=== PATIENT | female | born 1995 | race African-American/Black ===

== ENCOUNTER → 2022-11-02 11:52 | Outpatient (BNVA) | payer OTHER, SELFPAY | PROVIDERS: Visit Provider Internal Medicine | DX: Z77.21 Contact with and (suspected) exposure to potentially hazardous body fluids (principal) | CPT/HCPCS: 99203 ==

== ENCOUNTER → 2023-03-27 09:27 | Outpatient (BNVA) | payer OTHER, SELFPAY | PROVIDERS: Visit Provider Physician Assistant | DX: S63.601A Unspecified sprain of right thumb, initial encounter (principal); S39.012A Strain of muscle, fascia and tendon of lower back, initial encounter; S76.312A Strain of muscle, fascia and tendon of the posterior muscle group at thigh level, left thigh, initial encounter; S83.91XA Sprain of unspecified site of right knee, initial encounter; W01.0XXA Fall on same level from slipping, tripping and stumbling without subsequent striking against object, initial encounter | CPT/HCPCS: 99203 ==

== ENCOUNTER → 2023-04-03 15:49 | Outpatient (BNVA) | payer OTHER, SELFPAY | PROVIDERS: Visit Provider Physician Assistant | DX: S39.012A Strain of muscle, fascia and tendon of lower back, initial encounter (principal); S76.312A Strain of muscle, fascia and tendon of the posterior muscle group at thigh level, left thigh, initial encounter; W01.0XXA Fall on same level from slipping, tripping and stumbling without subsequent striking against object, initial encounter | CPT/HCPCS: 99214 ==

== ENCOUNTER → 2023-04-30 15:22 | Outpatient (BNVA) | payer OTHER, SELFPAY | PROVIDERS: Visit Provider Physician Assistant | DX: S76.312D Strain of muscle, fascia and tendon of the posterior muscle group at thigh level, left thigh, subsequent encounter (principal); S39.012D Strain of muscle, fascia and tendon of lower back, subsequent encounter; W01.0XXD Fall on same level from slipping, tripping and stumbling without subsequent striking against object, subsequent encounter | CPT/HCPCS: 99213 ==

== ENCOUNTER → 2024-01-10 12:18 | Outpatient (BNVA) | payer OTHER, SELFPAY | PROVIDERS: Visit Provider Registered Nurse | DX: S66.911A Strain of unspecified muscle, fascia and tendon at wrist and hand level, right hand, initial encounter (principal); W50.0XXA Accidental hit or strike by another person, initial encounter | CPT/HCPCS: 73110; 73130; 99203 ==

== ENCOUNTER → 2024-01-15 15:56 | Outpatient (BNVA) | payer OTHER, SELFPAY | PROVIDERS: Visit Provider Physician Assistant Medical | DX: S66.911A Strain of unspecified muscle, fascia and tendon at wrist and hand level, right hand, initial encounter (principal); W50.0XXA Accidental hit or strike by another person, initial encounter | CPT/HCPCS: 99213 ==

== ENCOUNTER → 2024-01-22 14:45 | Outpatient (BNVA) | payer OTHER, SELFPAY | PROVIDERS: Visit Provider Physician Assistant Medical | DX: S66.911D Strain of unspecified muscle, fascia and tendon at wrist and hand level, right hand, subsequent encounter (principal); W50.0XXD Accidental hit or strike by another person, subsequent encounter | CPT/HCPCS: 73200; 99213 ==

== ENCOUNTER → 2024-02-26 15:16 | Outpatient (BNVA) | payer OTHER, SELFPAY | PROVIDERS: Visit Provider Physician Assistant Medical | DX: S66.911D Strain of unspecified muscle, fascia and tendon at wrist and hand level, right hand, subsequent encounter (principal); W50.0XXD Accidental hit or strike by another person, subsequent encounter | CPT/HCPCS: 99213 ==

== ENCOUNTER 2024-03-11 08:06 | Outpatient (REF) | payer OTHER, SELFPAY ==
--- NOTE | ~2024-03-11 | MR_ITS ---
CLINICAL HISTORY: HYPEREXTENSION INJURY OF RT THUMB Exam: MRI of the right hand without intravenous contrast. Comparison: Radiographs January 10, 2024. Findings: Overall bony alignment is anatomic. No fracture or concerning bone marrow signal alteration is identified. There is mild edema within the distal fibers of the ulnar collateral ligament at the 1st metacarpophalangeal joints. No disruption of these fibers is identified. No bony avulsion is seen at the ulnar base of the proximal phalanx of the thumb. Radial collateral ligament at the 1st metacarpophalangeal joint is intact. Flexor and extensor tendons to the thumb are intact. Mild peritendinous edema surrounding the flexor pollicis longus tendon. Increased fluid within the 2nd extensor compartment at the level of Rosmery's tubercle. Mild edema surrounding the extensor carpi ulnaris tendon with mild tendinopathy of the extensor carpi ulnaris tendon. No abnormal fluid collections are seen within the carpal tunnel. Signal intensity of the median nerve is within normal limits. Impression: 1. No acute fracture. 2. Grade 1 sprain of the distal fibers of the ulnar collateral ligament at the 1st metacarpophalangeal joint. 3. Mild peritendinous edema surrounding the flexor pollicis longus tendon. No tendon tear seen. 4. Tenosynovitis involving the 2nd extensor compartment with tendinopathy and tenosynovitis of the extensor carpi ulnaris tendon. This document has been electronically signed by: Andrade Steinberg MD on 03/11/2024 10:15:22
== END 2024-03-11 08:07 | disposition home or self-care (01) ==
LOC: HO.MRI 08:06
PROVIDERS: PCP Nurse Practitioner Family; Visit Provider Internal Medicine
DX: M25.531 Pain in right wrist (principal)
CPT/HCPCS: 73218

== ENCOUNTER → 2024-03-11 08:18 | Outpatient (BNV) | payer OTHER, SELFPAY | PROVIDERS: PCP Nurse Practitioner Family; Visit Provider Radiology Diagnostic Radiology | DX: S53.441A Ulnar collateral ligament sprain of right elbow, initial encounter (principal); M65.88 Other synovitis and tenosynovitis, other site | CPT/HCPCS: 73218 ==

== ENCOUNTER 2024-04-01 13:21 | Outpatient (AMB) | payer OTHER, SELFPAY ==
--- NOTE | 2024-04-01 13:24 | A.OFFVIS_ITS ---
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 Patient reports off and on pain since the date of injury. She mentions that her pain is at the base of the thumb and on the dorsal aspect of the wrist. She states that her pain is worse when she is applying pressure to push and when her thumb is hyperextend. Patient has tried Motrin with relief. Denies numbness and tingling. 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 Patient reports off and on pain since the date of injury. She mentions that her pain is at the base of the thumb and on the dorsal aspect of the wrist. She states that her pain is worse when she is applying pressure to push and when her thumb is hyperextend. Patient has tried Motrin with relief. Denies numbness and tingling. 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 Neuro: Normal sensation of the tips of all digits of the right hand at this time Vascular: Cap refill brisk Pain: Patient reports minimal tenderness with ligamentous laxity testing of the UCL of the right thumb No other tenderness to palpation noted ROM: Patient is able to make a closed fist and extend all digits of the right hand fully and without difficulty No laxity with varus and valgus testing of the right thumb MCP joint noted Skin: No lacerations or abrasions. General: No ecchymosis, erythema, or evidence of infection. Psych: Appears grossly normal Affect normal Attitude cooperative for Results Reviewed Results Reviewed: R hand MRI Impression: 1. No acute fracture. 2. Grade 1 sprain of the distal fibers of the ulnar collateral ligament at the 1st metacarpophalangeal joint. 3. Mild peritendinous edema surrounding the flexor pollicis longus tendon. No tendon tear seen. 4. Tenosynovitis involving the 2nd extensor compartment with tendinopathy and tenosynovitis of the extensor carpi ulnaris tendon. This document has been electronically signed by: Andrade Steinberg MD on 03/11/2024 10:15:22 Assessment & Plan Assessment & Plan (1) Sprain of ulnar collateral ligament of metacarpophalangeal (MCP) joint of right thumb: Code(s): S63.641A - Sprain of metacarpophalangeal joint of right thumb, initial encounter Category: Medical Plan 1. UCL sprain of right thumb Date of injury 01/09/2024 Patient is educated about this injury Patient is educated about the typical recovery course At this time, patient was referred to occupational therapy for treatment of UCL sprain as well as range of motion and strengthening of the right hand Patient was also provided with a comfort cool thumb spica splint to wear with daytime activities Patient is educated that if 6-8 weeks after starting occupational therapy she has not improved, she can call us for follow-up Patient was amenable to this plan to this plan Coding Level of Care Code New Pt Level 3 (68396) Diagnoses Sprain of ulnar collateral ligament of metacarpophalangeal (MCP) joint of right thumb S63.641A
[2024-04-01 13:32] VITALS: BMI 41.5
--- OUTSIDE RECORDS SUMMARY | 2024-04-01 14:41 | XMS_ITS | Clinical Summary ---
Author Organization [facility] Address [address] [place] [address] Care Team Providers Care Segment Producer Name Role Phone Pcp, No Primary Care Provider Unavailabl e Allergies No known active allergies Medications No known medications Encounters Date Type Department Care Team Description 03/13/2024 Orders Only [address] [id number] Jesenia Donnelly APRN from Last 3 Months Social History Tobacco Use Types Packs/Day Years Used Date Smoking Tobacco: Never Assessed Sex and Gender Information Value Date Recorded Sex Assigned at Not on file Gender Identity Not on file Sexual Orientation Not on file Last Filed Vital Signs Vital Sign Reading Time Taken Comments Blood Pressure 136/86 09/16/2020 2:18 PM EDT Pulse 119 09/16/2020 2:18 PM EDT Temperature 36.3 ??C (97.3 ??F) 09/16/2020 2:18 PM ED T Respiratory Rate - - Oxygen Saturation 98% 09/16/2020 2:18 PM EDT Inhaled Oxygen Concentration - - Weight 127 kg (279 lb) 09/16/2020 2:18 PM EDT Height - - Body Mass Index - - Plan of Treatment Health Maintenance Due Date Last Done Comments Hepatitis C Virus Screening 1993 HIV Screening 2006 DTaP/Tdap/Td Vaccines (1 - Tdap) 2012 Hepatitis B Vaccines (1 of 3 - 19+ 3-dose series) 2012 Influenza Vaccine 09/19/2023 COVID-19 Vaccine (2023-2 5 season) 2023 Pap Smear (Ages 21-65) 04/24/2025 , 01/09/2021 HPV Vaccines Aged Out No longer eligi ble based on patient's age to complete this topic Pneumococcal Vaccine: Pediatric (0-5 Years) and At-Risk Patients (6 to 49 Years) Aged Out No longer eligible b ased on patient's age to complete this topic Procedures Procedure Name Priority Date/Time Associated Diagnosis Comments TSH, HIGHLY SENSITIVE Routine 03/13/2024 10:27 AM EST T4, FREE Routine 03/13/2024 10:27 AM EST COMPLETE BLOOD COUNT, WITH DIFFERENTIAL Routine 03/13/2024 10:27 AM EST PT/PTT (INCLUDES INR) Routine 03/13/2024 10:27 AM EST THINPREP PAP TEST (MEDICAL CLINIC MANAGER) WITH HPV REFLEX Routine 04/24/2022 12:00 AM EST from Last 3 Months or Most Recently Relevant to Health Maintenance Results * PT/PTT (INCLUDES INR) (03/13/2024 10:27 AM EST) Partial Thromboplastin Time (PTT) 28 23 - 32 sec [facility] Comment: This test has not been validated for monitoring unfractionated heparin therapy. For testing that is validated for this type of therapy, please refer to the Heparin Anti-Xa assay (test code 44459). For additional information, please refer to http://education.Frockadvisor/faq/AIT572 (This link is being provided for informational/educational purposes only.) INR 1.0 [facility] Comment: Reference Range ? 0.9-1.1 Moderate-intensity Warfarin Therapy 2.0-3.0 Higher-intensity Warfarin Therapy ?? 3.0-4.0 Prothrombin Time (PT) 10.3 9.0 - 11.5 sec [facility] 03/13/2024 10:2 7 AM EST 03/13/2024 10:29 AM EST Narrative [facility] - 03/14/2024 4:09 AM EST FASTING:YES FASTING: YES Jesenia Donnelly PATTERN SCRATCHER LAB BLOOD ORDERABL ES [facility] [address] [facility] 3rd Floor, [place] [address] * Complete Blood Count, with Differential (03/13/2024 10:27 AM EST) White Blood Cell Count 9.9 3.8 - 10.8 Thousand/u L [facility] Red Blood Cell Count 4.65 3.80 - 5.10 Million/uL [facility] Hemoglobin 13.9 11.7 - 15.5 g/dL [facility] Hematocrit 41.9 35.0 - 45.0 % [facility] MCV 90.1 80.0 - 100.0 fL [facility] MCH 29.9 27.0 - 33.0 pg [facility] MCHC 33.2 32.0 - 36.0 g/dL [facility] Comment: For adults, a slight decrease in the calculated MCHC value (in the range of 30 to 32 g/dL) is most likely not clinically significant; however, it should be interpreted with caution in correlation with other red cell parameters and the patient's clinical condition. RDW 12.0 11.0 - 15.0 % [facility] Platelet Count 348 140 - 400 Thousand/u L [facility] MPV 9.1 7.5 - 12.5 fL [facility] Abs Neutrophils Auto 6,069 1,500 - 7,800 cells/uL [facility] Abs Lymphocytes Auto 3,029 850 - 3,900 cells/uL [facility] Abs Monocytes Auto 624 200 - 950 cells/uL [facility] Abs Eosinophils Auto 139 15 - 500 cells/uL [facility] Abs Basophils Auto 40 0 - 200 cells/uL [facility] Neutrophils Auto 61.3 % [facility] Lymphocytes Auto 30.6 % [facility] Monocytes Auto 6.3 % [facility] Eosinophils Auto 1.4 % [facility] Basophils Auto 0.4 % [facility] 03/13/2024 10:2 7 AM EST 03/13/2024 10:29 AM EST Narrative [facility] - 03/14/2024 4:09 AM EST FASTING:YES FASTING: YES Jesenia Donnelly PATTERN SCRATCHER LAB BLOOD ORDERABL ES Performing Organization Address [facility] Co de Phone Number [facility] [address], [place] [address] * TSH, HIGHLY SENSITIVE (03/13/2024 10:27 AM EST) TSH, Highly Sensitive 0.80 mIU/L [facility] Comment: ?Reference Range ?> or = 20 Years ??0.40-4.50 ? Ranges ?First trimester ?0.26-2.66 ?Second trimester ?? 0.55-2.73 ?Third trimester ?0.43-2.91 03/13/2024 10:2 7 AM EST 03/13/2024 10:29 AM EST Narrative [facility] - 03/14/2024 4:09 AM EST FASTING:YES FASTING: YES Jesenia Donnelly PATTERN SCRATCHER LAB BLOOD ORDERABL ES [facility] [address], [place] [address] * T4, FREE (03/13/2024 10:27 AM EST) T4, Free 1.3 0.8 - 1.8 ng/dL [facility] 03/13/2024 10:2 7 AM EST 03/13/2024 10:29 AM EST Narrative [facility] - 03/14/2024 4:09 AM EST FASTING:YES FASTING: YES Jesenia Donnelly PATTERN SCRATCHER LAB BLOOD ORDERABL ES Performing Organization Address City/[facility]/ZIP Co de Phone Number [facility] [address], [facility] [place] [address] * ThinPrep Pap Test (Protection Mgr) with HPV Reflex (04/24/2022 12:00 AM EST) Clinical Information [facility] Comment:None given LMP: [facility] Comment:NONE GIVEN Previous PAP: [facility] Comment:NONE GIVEN Previous Biopsy [facility] Comment:NONE GIVEN Source: [facility] Comment:Cervix, Endocervix Statement of Adequacy: [facility] Comment: Satisfactory for evaluation. Endocervical/transformation zone component present. Interpretation/Resu lt: [facility] Comment:Negative for intraep ithelial lesion or malignancy. Comment: [facility] Comment: This Pap test has been evaluated with computer assisted technology. Hha: [facility] Comment: GSG, CT(ASCP) CT screening location: [address] ??[id number] Comment [facility] Comment: EXPLANATORY NOTE: The Pap is a screening test for cervical cancer. It is not a diagnostic test and is subject to false negative and false positive results. It is most reliable when a satisfactory sample, regularly obtained, is submitted with relevant clinical findings and history, and when the Pap result is evaluated along with historic and current clinical information. 04/24/2022 04/26/2022 1:2 1 AM EST Narrative [facility] - 04/26/2022 6:00 PM EST [id number] NG Liss Lopez DO PATHOLOGY/CYTOLOGY O RDERABLES Performing Organization Address [facility]/ZIP Co de Phone Number [facility] [address], [facility] [place] [address] from Last 3 Months or Most Recently Relevant to Health Maintenance Care Teams Segment Producer Relationship Specialty Start Date End Date Pcp, No PCP - General General Medicine 01/01/19
--- OUTSIDE RECORDS SUMMARY | 2024-04-01 14:41 | XMS_ITS | Encounter Summary ---
Author Organization [facility] Address [address] [place] [address] Care Team Providers Care Hcc Coders Name Role Phone Pcp, No Primary Care Provider Unavailabl e Encounter Details Date Type Department Care Team ([facility] st Contact Info) Description 03/13/2024 Orders Only [facility] [address] [facility] [address] [place] [address] Jesenia Donnelly, TRANSPORTER DRIVER [address] [facility] [address] [place] [address] Social History Tobacco Use Types Packs/Day Years Used Date Smoking Tobacco: Never Assessed Sex and Gender Information Value Date Recorded Sex Assigned at Not on file Gender Identity Not on file Sexual Orientation Not on file documented as of this encounter Plan of Treatment Not on file documented as of this encounter Procedures Procedure Name Priority Date/Time Associated Diagnosis Comments PT/PTT (INCLUDES INR) Routine 03/13/2024 10:27 AM EST COMPLETE BLOOD COUNT, WITH DIFFERENTIAL Routine 03/13/2024 10:27 AM EST TSH, HIGHLY SENSITIVE Routine 03/13/2024 10:27 AM EST T4, FREE Routine 03/13/2024 10:27 AM EST documented in this encounter Results * TSH, HIGHLY SENSITIVE (03/13/2024 10:27 AM EST) TSH, Highly Sensitive 0.80 mIU/L [facility] Comment: ?Reference Range ?> or = 20 Years ??0.40-4.50 ? Ranges ?First trimester ?0.26-2.66 ?Second trimester ?? 0.55-2.73 ?Third trimester ?0.43-2.91 03/13/2024 10:2 7 AM EST 03/13/2024 10:29 AM EST Narrative [facility] - 03/14/2024 4:09 AM EST FASTING:YES FASTING: YES Jesenia Nesprido TRANSPORTER DRIVER LAB BLOOD ORDERABL ES Performing Organization Address [facility]/ZIP Co de Phone Number [facility] [address] [address] * T4, FREE (03/13/2024 10:27 AM EST) T4, Free 1.3 0.8 - 1.8 ng/dL [facility] 03/13/2024 10:2 7 AM EST 03/13/2024 10:29 AM EST Narrative [facility] - 03/14/2024 4:09 AM EST FASTING:YES FASTING: YES Jesenia Nesprido TRANSPORTER DRIVER LAB BLOOD ORDERABL ES [facility] [address], [place] [address] * Complete Blood Count, with Differential (03/13/2024 [...] AM EST FASTING:YES FASTING: YES Jesenia Donnelly TRANSPORTER DRIVER LAB BLOOD ORDERABL ES [facility] [address] [facility] 3rd Floor, [place] [address] * PT/PTT (INCLUDES INR) (03/13/2024 10:27 AM EST) Partial Thromboplastin Time (PTT) 28 23 - 32 sec [facility] Comment: This test has not been validated for monitoring unfractionated heparin therapy. For testing that is validated for this type of therapy, please refer to the Heparin Anti-Xa assay (test code 18636). For additional information, please refer to http://education.GoVoluntr/faq/ZTU642 (This link is being provided for informational/educational purposes only.) INR 1.0 [facility] Comment: Reference Range ? 0.9-1.1 Moderate-intensity Warfarin Therapy 2.0-3.0 Higher-intensity Warfarin Therapy ?? 3.0-4.0 Prothrombin Time (PT) 10.3 9.0 - 11.5 sec [facility] 03/13/2024 10:2 7 AM EST 03/13/2024 10:29 AM EST Narrative [facility] - 03/14/2024 4:09 AM EST FASTING:YES FASTING: YES Jesenia Donnelly TRANSPORTER DRIVER LAB BLOOD ORDERABL ES [facility] [address], [address] [place], [place] [id number] documented in this encounter Visit Diagnoses Not on filedocumented in this encounter Care Teams Hcc Coders Relationship Specialty Start Date End Date Pcp, No PCP - General General Medicine 01/01/19 documented as of this encounter
--- OUTSIDE RECORDS SUMMARY | 2024-04-01 14:41 | XMS_ITS | Continuity of Care Document ---
Author Organization [facility], [facility] Address [address] [facility] [address] [place] [address] Care Team Providers Care Emergency Medicine Nurse Practitioner Name Role Phone RIVAS MYRICK Primary Care Provider Assessment No assessment recorded. Plan of Treatment Reminders Order Date Submit Date Provider Last Modified By Organization Details Last Modified Time Details Appointments ANNUAL CENTRAL OFFICE SUPERVISOR 20 2024 04:10P M Dr. Grace Naqvi Not available Not available Not available Lab None recorded . Referral None recorded . Procedures None recorded . Surgeries None recorded . Imaging None recorded . Medication Orders None recorded . Patient TargetsNo targets recorded. Patient InstructionsNo instructions recorded. Reason for Referral None Reported. Results Created Date Observation Date Name Description Value Unit Range Abnormal Flag Note LastModifiedBy Organization Detail LastModifiedTime 03/13/1903/13/2024 US, trans vagin al RAD [email or web address] [facility] [employer] [id number] 03/16/2024 13:43:08 Result Notes None recorded. 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 Ginger Megan null, [facility] 1 16:27:48 Uterine adenomyo sis 933671751 Active 2021 [facility] null, [place] - [facility] 2 10:43:32 Mood disorder 29358819 Active 2019 [facility] null, [facility] 2 10:43:32 Patient encounte r status 885856551 Active 2019 [facility] null, [facility] 2 10:43:32 Abnormal cervical Papanico laou smear 070523164 Active 2021 [facility] null, [facility] 2 10:43:32 Obstruct eden sleep apnea syndrome 70659807 Active 2021 [facility], [facility] 2 10:43:32 Generali zed anxiety disorder 54695737 Active 2019 [facility] null, [facility] 2 10:43:32 Uses IUD (intraut erine device) contrace ption 694756606 Completed 202106/20/2022 Removal Reason: clinical study particip ant Erma Marrufo, GUSTAVO [address] [facility], [address], [place], [address] 3 17:36:12 Severe obesity 74314116384 104 Active 2021 Ginger [facility], [facility] 2 10:43:32 Ventricu lar prematur e beats 87808777 Active 2021 [facility], [facility] 2 10:43:32 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 17:18:11 Postoper ative pain 982073532 Active 2021 Erma Marrufo CNM [address], [place], [address], [facility] 17:19:47 Notes:Heart Problems- extra Heart beats/Adenomyosis Problem Notes None recorded. Procedures Surgical History Date Name Laterality Status Provider Name and Address Organization Details Recorded Time 03/13/19 25 U/S CENTRAL OFFICE SUPERVISOR Transvaginal completed Mary Beth Sanchez [facility] 03/05/2024 07:50:09 08/03/19 23 U/S CENTRAL OFFICE SUPERVISOR Transvaginal completed CURT KAMARA DO [address], [address] [place] [address], [place], [address], [facility] 08/02/2022 09:43:14 06/21/19 23 IUD Removal completed Erma Marrufo CNM [address], [place], [address], [facility] 06/20/2022 17:33:53 06/13/19 23 U/S CENTRAL OFFICE SUPERVISOR Transvaginal completed CURT KAMARA DO [address], [address] [facility], [place], [address], [facility] 06/12/2022 17:25:03 04/25/19 23 Date of Last Pap Smear completed Ginger Guzman [facility] 05/04/2022 10:22:46 01/10/20 22 U/S CENTRAL OFFICE SUPERVISOR Transvaginal completed CURT KAMARA DO [address], [place], [address], [facility] 01/09/2022 17:21:17 11/11/19 22 U/S CENTRAL OFFICE SUPERVISOR Transvaginal completed CURT ANH, DO [address], [place], [address], [place] [facility] 11/10/2021 15:00:16 09/23/19 22 LAPAROSCOPY, SURGICAL WITH FULGURATION/EXCI MARLEN OF LESIONS OF THE OVARY/PELVIC VISCERA/PERITONE AL SURFACE (SURG) completed Ginger Megan [facility] 09/26/2021 12:11:54 07/12/19 22 U/S CENTRAL OFFICE SUPERVISOR Transvaginal completed CURT KAMARA, DO [address] Floor, [place], [address], [facility] - [facility] 07/11/2021 13:31:25 05/10/19 22 U/S CENTRAL OFFICE SUPERVISOR Transvaginal completed CURT KAMARA, DO [address], [address] Floor, [place], [address], [place] [facility] 05/09/2021 13:50:13 03/13/19 22 U/S CENTRAL OFFICE SUPERVISOR Transvaginal completed CURT KAMARA, DO [address], [place], [address], [facility] - [facility] 03/13/2021 12:34:42 02/18/19 22 Endometrial Biopsy completed Rebecca Lucas [facility] 05/17/2023 16:50:39 10/11/19 21 U/S CENTRAL OFFICE SUPERVISOR Transvaginal completed CURT KAMARA DO [address], [place], [address], [place] [facility] 10/10/2020 14:12:18 09/06/19 21 U/S CENTRAL OFFICE SUPERVISOR Transvaginal cancelled Ginger [facility] - [facility] 08/30/2020 12:11:05 05/27/19 21 U/S CENTRAL OFFICE SUPERVISOR Transvaginal completed CURT KAMARA DO [address], [place], [address], [place] [facility] 05/26/2020 18:03:06 06/19/19 16 Breast reduction completed Ginger Guzman [facility] 05/26/2020 16:25:55 02/18/19 16 Breast Surgery completed Rebecca Lucas [facility] 05/17/2023 16:50:39 02/18/19 13 Endometrial Biopsy completed Rebecca Lucas [facility] 05/17/2023 16:50:39 02/18/19 12 laparoscopy completed Aniyah Aminata [facility] 10/10/2020 11:44:30 Imaging Results None recorded. Procedure Notes None recorded. Medical Equipment None Reported. Allergies Allergen ID Allergen Name Allergen Category Reaction Reaction Severity Criticality Documentation Date Start Date Code Code System Note Provider Name and Address Organization Details Recorded Time 7037010 grass pollen environme nt,medica tion itching severe Not available 07/11/2021 [id number] UNK Ginger Guzman [facility], [facility] 12:39:54 Medications Name Sig Start Date Stop Date Status Note LastModified by Organization Details LastModified Time Prescript ion - Prior Authoriza tion Request 05/07 completed Not Available Not Available Not Available fluoxetin e 40 mg capsule TAKE 1 CAPSULE BY MOUTH EVERY DAY 01/09 completed Not Available Not Available Not Available amoxicill in 500 mg capsule TAKE 2 CAPSULES BY MOUTH TWICE A DAY FOR 10 DAYS 03/01 completed Not Available Not Available Not Available buspirone 5 mg tablet Take 1 tablet twice a day by oral route. active Not Available Not Available No t Available metformin 500 mg tablet Take 1 tablet twice a day by oral route. 02/16 completed Not Available Not Available Not Available oxcarbaze pine 150 mg tablet 02/16 completed Not Available Not Available Not Available venlafaxi ne ER 37.5 mg capsule,e xtended release 24 hr TAKE 1 CAPSULE BY MOUTH EVERY DAY 07/11 completed Not Available Not Available Not Available venlafaxi ne ER 75 mg capsule,e xtended release 24 hr 02/16 completed Not Available Not Available Not Available dextroamp hetamine sulfate 5 mg tablet Take 1 tablet twice a day by oral route. 07/11 completed Not Available Not Available Not Available cetirizin e 10 mg tablet Take 1 tablet every day by oral route. 09/28 completed Allergie s Not Available Not Available Not Available ibuprofen 800 mg tablet TAKE 1 TABLET 3 TIMES A DAY BY ORAL ROUTE. active Not Available Not Available No t Available fluconazo le 150 mg tablet TAKE 1 TABLET BY MOUTH ONCE. IF NO IMPROVEM ENT IN 72 HOURS TAKE ANOTHER 150 MG active Not Available Not Available No t Available benzonata te 200 mg capsule TAKE 1 CAPSULE BY MOUTH THREE TIMES A DAY NEEDED 03/01 completed Not Available Not Available Not Available phenazopy ridine 200 mg tablet Take 1 tablet 3 times a day by oral route for 3 days. 01/09 completed Not Available Not Available Not Available metronida zole 0.75 % (37.5 mg/5 gram) vaginal gel INSERT 1 APPLICAT ORFUL VAGINALL Y EVERY DAY AT BEDTIME FOR 5 DAYS active Not Available Not Available No t Available dextroamp hetamine- amphetami ne 10 mg tablet 09/18 completed Not Available Not Available Not Available metronida zole 500 mg tablet TAKE 1 TABLET BY MOUTH TWICE A DAY 03/01 completed Not Available Not Available Not Available oxcarbaze pine 300 mg tablet TAKE 1 TABLET BY MOUTH IN THE MORNING FOR 14 DAYS THEN 1 TABLET TWICE DAILY THEREAFT ER 07/11 completed Not Available Not Available Not Available famotidin e 20 mg tablet TAKE 1 TABLET BY MOUTH TWICE A DAY FOR 10 DAYS 05/16 completed Not Available Not Available Not Available modafinil 200 mg tablet TAKE 1 TABLET BY MOUTH EVERY MORNING 05/16 completed Not Available Not Available Not Available clindamyc in 1 % topical gel 02/16 completed Not Available Not Available Not Available triamcino lone acetonide 0.025 % topical cream TAKE 1 MOHAN APPLIED TOPICALL Y 2 TIMES A DAY FOR 14 DAYS active Not Available Not Available No t Available dextroamp hetamine- amphetami ne ER 20 mg 24hr capsule,e xtend release TAKE 1 CAPSULE BY MOUTH 2 TIMES A DAY2 ND DOSE NO LATER THAN 1 PM 04/24 completed Not Available Not Available Not Available ciproflox acin 0.3 % eye drops PLEASE SEE ATTACHED FOR DETAILED DIRECTIO NS 08/31 completed Not Available Not Available Not Available venlafaxi ne 37.5 mg tablet Take 1 tablet twice a day by oral route. 02/16 completed Not Available Not Available Not Available buspirone 10 mg tablet TAKE 1 TABLET BY MOUTH TWICE A DAY active Not Available Not Available No t Available benztropi ne 1 mg tablet TAKE ONE TABLET BY MOUTH ONCE DAILY BEFORE BEDTIME 04/24 completed Not Available Not Available Not Available sertralin e 25 mg tablet 25 mg by oral route. 09/18 completed Not Available Not Available Not Available dextroamp hetamine- amphetami ne ER 10 mg 24hr capsule,e xtend release TAKE 2 CAPSULES BY MOUTH EVERY DAY 03/01 completed Not Available Not Available Not Available norethind phill acetate 5 mg tablet 09/18 completed Not Available Not Available Not Available azelastin e 137 mcg (0.1 %) nasal spray SPRAY 1 SPRAY INTRANAS ALLY TWICE A DAY NEEDED active Not Available Not Available No t Available ibuprofen 600 mg tablet 02/16 completed Not Available Not Available Not Available methylpre dnisolone 4 mg tablets in a dose pack TAKE 6 TABLETS ON DAY 1 DIRECTED ON PACKAGE AND DECREASE BY 1 TAB EACH DAY FOR A TOTAL OF 6 DAYS active Not Available Not Available No t Available ipratropi um bromide 42 mcg (0.06 %) nasal spray SPRAY 2 SPRAYS INTRANAS ALLY 3 TIMES A DAY NEEDED 03/01 completed Not Available Not Available Not Available dextroamp hetamine- amphetami ne ER 30 mg 24hr capsule,e xtend release 1 CAPSULE BY MOUTH DAILY IN AM,INSTR :PLEASE ALLOW FOR EARLIER PICKUP DUE TO TRAVEL active Not Available Not Available No t Available estradiol 0.0375 mg/24 hr semiweekl y transderm al patch 09/18 completed Not Available Not Available Not Available fluoxetin e 20 mg capsule TAKE 1 CAPSULE BY MOUTH EVERY DAY IN THE MORNING 04/24 completed Not Available Not Available Not Available metformin ER 500 mg tablet,ex tended release 24 hr 1000 mg by oral route. 04/24 completed Not Available Not Available Not Available dextroamp hetamine- amphetami ne 5 mg tablet 2 TABLET BY MOUTH DAILY IN AM FOR EXCESSIV E DAYTIME SLEEPINE SS active Not Available Not Available No t Available norethind phill 0.5 mg-ethiny l estradiol 35 mcg tablet Take 1 tablet every day by oral route. 05/09 completed Not Available Not Available Not Available oxycodone 5 mg tablet TAKE 1 TABLET BY MOUTH EVERY 4 HOURS 01/09 completed Not Available Not Available Not Available modafinil 100 mg tablet TAKE 1 TABLET BY MOUTH EVERY MORNING 05/16 completed Not Available Not Available Not Available dextroamp hetamine- amphetami ne ER 15 mg 24hr capsule,e xtend release TAKE 1 CAPSULE BY MOUTH EVERY MORNING 02/02 completed Not Available Not Available Not Available duloxetin e 20 mg capsule,d elayed release TAKE 1 TABLET BY MOUTH EVERY MORNING 01/09 completed Not Available Not Available Not Available duloxetin e 30 mg capsule,d elayed release TAKE 1 CAPSULE BY MOUTH EVERY DAY 01/09 completed Not Available Not Available Not Available Adderall XR active Not Available Not Available Not Available aripipraz ole 2 mg tablet TAKE 1 TABLET BY MOUTH EVERY DAY active Not Available Not Available No t Available Lo Loestrin Fe active given to her by study she is in. Not Available Not Available Not Available Jencycla 0.35 mg tablet 02/16 completed Not Available Not Available Not Available Ashlyna 0.15 mg-30 mcg (84)/10 mcg(7) tablets,3 month dose pack 02/16 completed Not Available Not Available Not Available desvenlaf axine succinate ER 25 mg tablet,ex tended release 24 hr TAKE 1 TABLET BY MOUTH EVERY DAY 01/09 completed Not Available Not Available Not Available Vraylar 1.5 mg capsule TAKE 1 CAPSULE BY MOUTH EVERY DAY 05/16 completed Not Available Not Available Not Available Orilissa 150 mg tablet Take 1 tablet every day by oral route. active given to her by study she is in. Not Available Not Available Not Available Orilissa 200 mg tablet Take 1 {tbl} by oral route. 09/22 completed Not Available Not Available Not Available Flowflex COVID-19 Antigen Home Test kit DIRECTED 01/09 completed Not Available Not Available Not Available Auvelity active Not Available Not Avai lable Not Available Vitals Date Recorded Body height Body mass index (BMI) Body weight Systolic blood pressure Diastolic blood pressure Provider Name and Address Organization Details Last Updated DateTime 03/13/2024 168.91 cm 41.8 kg/m2 711444.7 9 g 120 mm[Hg] 78 mm[Hg] [place] [facility] 09:07:18 Social History Question Answer Notes LastModified by Organizat ion Details LastModified Time Tobacco Smoking Status Never Smoker Not Available [facility] 04/24/2022 09:56:27 What Is Your Level Of Alcohol Consumption? Moderate [email or web address] Information not available 04/24/2022 Is Blood Transfusion Acceptable In An Emergency? Yes [email or web address] Information not available 04/24/2022 Do You Or Have You Ever Used E-cigarettes Or Vape? Never Used Electronic Cigarettes [email or web address] Information not available 04/24/2022 What Is The Highest Grade Or Level Of School You Have Completed Or The Highest Degree You Have Received? 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 No Information not available 05/26/2020 Does Your Partner Physically Hurt You Or Threaten To Hurt You? No Information not available 05/26/2020 Has Your Partner Forced You To Have Sex Or Perform Sex Acts When You Did Not Want To? No Information not available 05/26/2020 Does Your Partner Insult, Scream At Or Talk Down To You? No Information not available 05/26/2020 Does Your Partner Control You Or Any Part Of Your Life? No Information not available 05/26/2020 Are You Afraid Of Your Partner? No No Partner Information not available 05/26/2020 Do You Feel Safe At Home? Yes Information not available 05/26/2020 What Was The Date Of Your Most Recent Tobacco Screening? 02/06/2022 [email or web address] Information not available 04/24/2022 How Many Children Do You Have? 0 [email or web address] Information not available 04/24/2022 Do You Use Protection During Sex? No [email or web address] Information not available 04/24/2022 Are You Sexually Active? Yes Information not available 05/17/2023 Do You Or Have You Ever Used Smokeless Tobacco? Never Used Smokeless Tobacco [email or web address] Information not available 04/24/2022 How Much Tobacco Do You Smoke? No [email or web address] Information not available 04/24/2022 General Stress Level High [email or web address] Information not available 04/24/2022 Do You Feel Stressed (tense, Restless, Nervous, Or Anxious, Or Unable To Sleep At Night)? [id number] Information not available 05/17/2023 How Many Years Have You Smoked Tobacco? 0 [email or web address] Information not available 04/24/2022 Have You Recently Traveled Abroad? No Information not available 07/11/2021 Sex: Female Functional Status Question Answer Note LastModified by Organizat ion Details LastModified Time What is your exercise level? None encouraged Information not available 05/17/2023 Mental Status None recorded. Family History Relationship Description Onset Age of this Age Resolved Age Notes LastModified by Organization Details LastModified Time Father Hypertensive disorder apomales Not available 2020 16:21:46 Paternal Grandfather Cerebrovascu lar accident apomales Not available 09/2020 16:21:57 Mother Hypercholest erolemia [email or web address] Not available 2023 16:43:23 Maternal Grandmother Depressive disorder apomales Not available 2020 16:22:22 Maternal Grandmother Alzheimer's disease [email or web address] Not available 2023 16:43:23 Unspecified Relation Diabetes mellitus apomales Not available 2020 16:23:03 Notes:Pt has 2 Brothers Medical History Condition Response Anxiety Disorder Y Heart Problems Y Depression Y Asthma Y Gynecological History Statement/Question Response Benign Breast Disease N Date of LMP Breast Biopsy N IPV Screen Done 02/06/2022 [facility] Biopsy N Post Menopausal Bleeding N STIs/STDs N PID N Cervical Cancer N History of Endometrial Biopsy? N BrCa gene tested? N Ovarian Cancer N Breast Cancer N Bladder Problems N Abnormal Uterine Bleeding N Abnormal Pap N BrCa Positive N Infertility N Breast Ultrasound N Leep N Sexual Orientation heterosexual HPV Vaccine Y Endometriosis Y Age at Menarche 11 Fibroids Y Uterine Cancer N Current Control Method None Mammogram Required? Y Sexually Active? Y Sexual Problems? Y Date of Last Pap Smear 04/24/2022 Pap Required? Y Hormone Replacement Therapy N Obstetrics History GPAL:G 0 P 0 0 0 0 Type Value Living 0 Total 0 Immunizations Vaccine Type Date Status Note Provider Jimenez hollingsworth and Address Organization Details Recorded Time COVID-19, mRNA, LNP-S, PF, 100 mcg/0.5mL dose or 50 mcg/0.25mL dose 07/08/2020 completed Not Available [facility] 3 09:17:42 COVID-19, mRNA, LNP-S, PF, 100 mcg/0.5mL dose or 50 mcg/0.25mL dose 06/15/2021 completed GITA Carlson - [facility] 06/12/2022 16:24:21 Past Encounters Encounter ID Performer Location Encounter Start Date Encounter Closed Date Diagnosis/Indication Diagnosis SNOMED-CT Code Diagnosis ICD10 Code Diagnosis Note [id number] DONY WILLARD2 [address] [place] [address] 03/02/2024 15:49:03 03/02/2024 16:14:39 Abnormal uterine bleeding 7210888713 9100 N93.9 No bleeding today appears episode has ceased. Pt did have 2 episodes of bleeding for 9 days then again for 12 days. Pt states in a study with her control and Orlissa. Pt doesn't know type of control will call the study and get that informatio n for us. Pt does have a hx of endometrio sis, adenomyosi s, and PCOS. In the interim will order blood work and pt will come back for a transvagin al ultrasound with MDs. [id number] GRACE NAQVI MD T[facility] [place] [address] 03/13/2024 09:02:59 03/13/2024 09:28:35 Abnormal uterine bleeding [id number] 9100 N93.9 Pt informed TV US in office today is unremarkab le, thin lining, inhomogene ous uterus c/w adenomyios is (suspected from before), bilateral ovaries moving freely and normal appearance .Pt reminded to go for blood tests.Will d/w with the study coordinato rs to inquire if OCP's can be changed, would consider a higher dose OCP. Could consider reinsertin g IUD instead. She will let us know. Dyspareunia 58454503 N94 .10 Could be related to the uterine position; will try adjust position during sex and monitor pain. Health Concerns Section Related Observation LastModified by Organization Detai ls LastModified Time None Recorded Concern Status LastModified by Organization Details LastModified Time None Recorded Payers Encounter Date Sequence Insurance Name Policy Number Policy Soni Covered Member ID Soni Member ID Guarantor Name 03/13/[address] [place] [address] ([facility]) [id number] Paz Gallagher [id number] Paz Gallagher Notes Date Note Type Note Provider Name and Address Organization Details Recorded Time 03/13/2024 text/html [facility] Abnormal BleedingReported bypatient.Onset/Timing :past 3-5 cycles Duration:10-15 days/month Quality:moderate Context:current contraception: (OCP) Associated Symptoms:no fatigue; no dizziness; no shortness of breath; no CP/palpitations; no vaginal discharge;dysmenorrhea ;dyspareunia Has been on Loloestrin and Orilissa for over one year, does not think it is helping much with her menses. Had experienced additional bleeding episodes in the last 2-3 cycles. Some pelvic pain with intercourse and menses GRACE NAQVI MD [address] [place] [address], [address], [place], [address], [place] [facility] 03/13/2024 09:32:51 OBGyn Episode No OBEpisode recorded.
--- OUTSIDE RECORDS SUMMARY | 2024-04-01 14:41 | XMS_ITS | Continuity of Care Document ---
Author Organization [employer] Address [address] [place] [address] Insurance Providers Payer Plan Claims Address Claims Phone Policy Number Group Number Relation Employer Guarantor Name Guarantor Guarantor Address Guarantor Phone [facility] [employer] [address], [place] [id number] Edgar RAINEY [address] [place] [id number] [facility] [address], [place] [address] tel:[phone] Edgar RAINEY [address] [place] [id number] [employer] [address], [place] [address] tel:[phone] Edgar RAINEY [address] [place] [phone] Problems Condition ICD9 code ICD10 code SNOMED code Start Date End Date S tatus Encounter for screening for other metabolic disorders Z13.228 Results No Results Allergies, adverse reactions, alerts No known allergies and adverse reactions Medications No administered medications reported Vital Signs No vital signs reported Social History No smoking Hx information available
--- OUTSIDE RECORDS SUMMARY | 2024-04-01 14:41 | XMS_ITS | Data Portability ---
Author Organization [place] - [facility], T1 Address [id number] [place] [address] Care Team Providers Care Skein Winding Operator Name Role Phone MYRICKRIVAS FAIR Primary Care Provider Assessment Encounter Date Assessment Date Assessment LastModified by Organization Details LastModified Time 08/02/2022 08/02/2022 27yo w/ enodmetriosis for f/u right ovarian cyst.. rlamonica Not available 08/02/2022 09:46:20 Plan of Treatment Reminders Order Date Submit Date Provider Last Modified By Organization Details Last Modified Time Details Appointments ANNUAL BARREL AND RECEIVER ALIGNER 20 2024 04:10P M Dr. Grace Naqvi Not available Not available Not available Lab bacterial vaginosis + vaginitis panel, vaginal 2023 024 [facility], [address] [place] [address], [id number] 02/06/2024 07:37:48 bacterial vaginosis + vaginitis panel, vaginal 2024 025 [facility], [address] [place] [address], [id number] 03/04/2024 09:11:57 CBC w/ auto diff 2024 025 [facility], [address] [place] [address], 03/14/2024 04:12:21 beta-HCG, quantitat eden, serum or plasma 2024 025 [facility], [address] [place] [address], [id number] 03/14/2024 04:12:22 TSH + free T4, serum 2024 025 daisy [facility], [address] [place], [address] 03/17/2024 08:25:08 unlisted lab - coagulati on profile (PT/PTT) 2024 025 LEI [facility], [address] [place], [address] 03/14/2024 04:12:20 Referral None recorded. Procedures None recorded. Surgeries None recorded. Imaging None recorded. Medication Orders None recorded. Patient TargetsNo targets recorded. Patient Instructions Encounter Date Encounter Id Patient Instructions Last Modified By Organization Details Last Modified Time 05/17/2023 [id number] tips to help you stay healthy Not available 05/17/2023 17:12:43 endometriosis: care instructions Not available 05/17/2023 17:12:43 Reason for Referral None Reported. Results Created Date Observation Date Name Description Value Unit Range Abnormal Flag Note LastModifiedBy Organization Detail LastModifiedTime 02/04/20 24 02/06/2024 SURES WAB(R ) ADVAN [place] VAGIN ITIS, TMA sureswab(R) adv bacterial vaginosis (bv), tma NEGATI VE negati ve normal Not Available [facility] [address], [address], 02/06/2024 07:37:48 02/04/20 24 02/06/2024 SURES WAB(R ) ADVAN [place] VAGIN ITIS, TMA jackelyn species NOT DETECT ED not detect ed normal Not Available [facility] [address], [address], 02/06/2024 07:37:48 02/04/20 24 02/06/2024 SURES WAB(R ) ADVAN [place] VAGIN ITIS, TMA jackelyn glabrata NOT DETECT ED not detect ed normal Mary da speci es C. albic ans, C. tropi calis , C. parap maryjane is, and/o r C. dubli federica is can be detec renetta, but not diffe renti ated, in the Mary da spp. resul t. Not Available [facility] [place] [facility] [address], [place], [address], 02/06/2024 07:37:48 02/04/20 24 02/06/2024 SURES WAB(R ) ADVAN [place] VAGIN ITIS, TMA trichomonas vaginalis (TV), tma NOT DETECT ED not detect ed normal Not Available [facility] [place] [facility] [address], [place], [address], 02/06/2024 07:37:48 03/02/19 25 03/04/2024 SURES WAB(R ) ADVAN [place] VAGIN ITIS PLUS, TMA sureswab(R) adv bacterial vaginosis (bv), tma POSITI VE negati ve abnormal Not Available [facility] [place] [facility] [address], [place], [address], 03/04/2024 09:11:57 03/02/19 25 03/04/2024 SURES WAB(R ) ADVAN [place] VAGIN ITIS PLUS, TMA jackelyn species NOT DETECT ED not detect ed normal Not Available [facility] [place] [facility] [address] [place] [address], [place], [address], 03/04/2024 09:11:57 03/02/19 25 03/04/2024 SURES WAB(R ) ADVAN [place] VAGIN ITIS PLUS, TMA jackelyn glabrata NOT DETECT ED not detect ed normal Mary da speci es C. albic ans, C. tropi calis , C. parap maryjane is, and/o r C. dubli niens is can be detec renetta, but not diffe renti ated, in the Mary da spp. resul t. Not Available [facility] [place] [facility] [address] [place] [address], [address], 03/04/2024 09:11:57 03/02/19 25 03/04/2024 SURES WAB(R ) ADVAN [place]GIANA VAGIN ITIS PLUS, TMA trichomonas vaginalis (TV), tma NOT DETECT ED not detect ed normal Not Available [facility] [place] [facility] [address], [address], 03/04/2024 09:11:57 03/02/1903/04/2024 SURES WAB(R ) ADVAN GE[place]NA VAGIN ITIS PLUS, TMA chlamydia trachomatis RNA, tma, urogenital NOT DETECT ED not detect ed normal Not Available [facility] [place] [facility] [address], [address], 03/04/2024 09:11:57 03/02/1903/04/2024 SURES WAB(R ) ADVAN [place] VAGIN ITIS PLUS, TMA neisseria gonorrhoeae RNA, tma, urogenital NOT DETECT ED not detect ed normal For addit ional infor alejandro young refer to https ://ed ucati onSurreal Games/f aq/FA Q154 (This link is being provi ded for genevieve roth/ yolis flynn ses only. ) Not Available [facility] [place] [facility] [address], [address], 03/04/2024 09:11:57 03/13/1903/14/2024 PROTH ROMBI N W/INR + PARTI AL THROM BOPLA STIN TIMES partial thromboplast in time, activated 28 sec 23-32 normal This test has not been valid ated for monit oring unfra ction ated hepar in thera py. For testi ng that is valid ated for this type of thera py, alejandro hollingsworth refer to the Hepar in Anti- Xa assay (test code 95303 ). For addit ional infor alejandro young e refer to http: //barney roth.Tony stDia gnost ics.c om/fa q/FAQ 159 (This link is being provi ded for infor matio nal/e ducat ional purpo ses only. ) Not Available [facility] [place] [facility] [address], [place], [address], 03/14/2024 04:12:20 03/13/1903/14/2024 PROTH ROMBI N W/INR + PARTI AL THROM BOPLA STIN TIMES INR 1.0 normal Refer ence Range 0.9-1 .1 Moder ate-i ntens ity Warfa rin Thera py 2.0-3 .0 Highe r-int ensit y Warfa rin Thera py 3.0-4 .0 Not Available [facility] [place] [facility] [address], [place], [address], 03/14/2024 04:12:20 03/13/1903/14/2024 PROTH ROMBI N W/INR + PARTI AL THROM BOPLA STIN TIMES PT 10.3 sec 9.0-11 .5 normal Not Available [facility] [place] [facility] [address], [place], [address], 03/14/2024 04:12:20 03/13/19 25 03/14/2024 CBC (INCL UDES DIFF/ PLT) white blood cell count 9.9 thous and/u L 3.8-10 .8 normal Not Available [facility] [place] [facility] [address], [place], [address], 03/14/2024 04:12:21 03/13/19 25 03/14/2024 CBC (INCL UDES DIFF/ PLT) red blood cell count 4.65 luis on/uL 3.80-5 .10 normal Not Available [facility] [address], [place], [address], 03/14/2024 04:12:21 03/13/19 25 03/14/2024 CBC (INCL UDES DIFF/ PLT) hemoglobin 13.9 g/dL 11.7-1 5.5 normal Not Available [facility] [place] [facility] [address] [place], [place], [address], 03/14/2024 04:12:21 03/13/1903/14/2024 CBC (INCL UDES DIFF/ PLT) hematocrit 41.9 % 35.0-4 5.0 normal Not Available [facility] [place] [facility] [address], [place], [address], 03/14/2024 04:12:21 03/13/1903/14/2024 CBC (INCL UDES DIFF/ PLT) MCV 90.1 fL 80.0-1 00.0 normal Not Available [facility] [place] [facility] [address], [place], [address], 03/14/2024 04:12:21 03/13/1903/14/2024 CBC (INCL UDES DIFF/ PLT) MCH 29.9 pg 27.0-3 3.0 normal Not Available [facility] [place] [facility] [address], [place], [address], 03/14/2024 04:12:21 03/13/1903/14/2024 CBC (INCL UDES DIFF/ PLT) MCHC 33.2 g/dL 32.0-3 6.0 normal For adult s, a sligh t decre ase in the calcu lated MCHC value (in the range of 30 to 32 g/dL) is most likel y not clini marbella signi farhat t; víctor er, it shoul d be inter prete d with cauti on in [facility] with other red cell wero eters and the patie nt's clini sun condi tion. Not Available [facility] [place] [facility] [address], [place], [address], 03/14/2024 04:12:21 03/13/1903/14/2024 CBC (INCL UDES DIFF/ PLT) RDW 12.0 % 11.0-1 5.0 normal Not Available [facility] [place] [facility] [address], [place], [address], 03/14/2024 04:12:21 03/13/1903/14/2024 CBC (INCL UDES DIFF/ PLT) platelet count 348 thous and/u L 140-40 0 normal Not Available [facility] [place] [facility] [address], [place], [address], 03/14/2024 04:12:21 03/13/1903/14/2024 CBC (INCL UDES DIFF/ PLT) MPV 9.1 fL 7.5-12 .5 normal Not Available [facility] [place] [facility] [address], [place], [address], 03/14/2024 04:12:21 03/13/1903/14/2024 CBC (INCL UDES DIFF/ PLT) absolute neutrophils 6069 cells /uL 1500-7 800 normal Not Available [facility] [address], [place], [address], 03/14/2024 04:12:21 03/13/1903/14/2024 CBC (INCL UDES DIFF/ PLT) absolute lymphocytes 3029 cells /uL 850-39 00 normal Not Available [facility] [address], [place], [address], 03/14/2024 04:12:21 03/13/1903/14/2024 CBC (INCL UDES DIFF/ PLT) absolute monocytes 624 cells /uL 200-95 0 normal Not Available [facility] [address], [place], [address], 03/14/2024 04:12:21 03/13/1903/14/2024 CBC (INCL UDES DIFF/ PLT) absolute eosinophils 139 cells /uL 15-500 normal Not Available [facility] [place] [facility] [address], [place], [address], 03/14/2024 04:12:21 03/13/1903/14/2024 CBC (INCL UDES DIFF/ PLT) absolute basophils 40 cells /uL 0-200 normal Not Available [facility] [place] [facility] [address], [place], [address], 03/14/2024 04:12:21 03/13/1903/14/2024 CBC (INCL UDES DIFF/ PLT) neutrophils 61.3 % normal Not Available [facility] [address], [place], [address], 03/14/2024 04:12:21 03/13/1903/14/2024 CBC (INCL UDES DIFF/ PLT) lymphocytes 30.6 % normal Not Available [facility] [address], [place], [address], 03/14/2024 04:12:21 03/13/1903/14/2024 CBC (INCL UDES DIFF/ PLT) monocytes 6.3 % normal Not Available [facility] [address], [place], [address], 03/14/2024 04:12:21 03/13/1903/14/2024 CBC (INCL UDES DIFF/ PLT) eosinophils 1.4 % normal Not Available [facility] [address], [place], [address], 03/14/2024 04:12:21 03/13/1903/14/2024 CBC (INCL UDES DIFF/ PLT) basophils 0.4 % normal Not Available [facility] [address] [place], [address], 03/14/2024 04:12:21 03/13/1903/14/2024 T4, FREE T4, free 1.3 NG/dL 0.8-1. 8 normal Not Available [facility] [address], [place], [address], 03/14/2024 04:12:21 03/13/1903/14/2024 TSH TSH 0.80 mIU/L normal Refer ence Range > or = 20 Years 0.40- 4.50 Pregn amairani Range s First trime ster 0.26- 2.66 Secon d trime ster 0.55- 2.73 Third trime ster 0.43- 2.91 Not Available [facility] [address], [place], [address], 03/14/2024 04:12:22 03/13/1903/14/2024 HCG, TOTAL , QN HCG, total, qn <5 mIU/m L normal Refer ence Range Nonpr egnan t or preme nopau priscilla <5 Postm enopa usal <10 Value s from diffe rent assay metho ds may vary. The use of this assay to monit or or to diagn ose patie nts with cance r or any condi tion unrel ated to pregn amairani has not been clear ed or appro magaly by the FDA or the [facility] actur er of the assay . Not Available [facility] [address], [place], [address], 03/14/2024 04:12:22 08/03/1908/02/2022 ultra sound image s RAD [email or web address] [facility] [id number] 08/02/2022 14:53:25 03/13/19 25 03/13/2024 US, trans vagin al RAD [email or web address] [facility] [id number] 03/16/2024 13:43:08 Result Notes None recorded. Problems Name Problem SNOMED Code Status Onset Date Resolution Date Notes Provider Name and Address Organization Details Recorded Time Asthma 355734643 Active 2020 [facility] null, [facility] 1 16:20:57 Sleep apnea 24338452 Active 2020 Ginger [facility] null, [facility] 1 16:21:03 Endometr iosis (clinica l) 827347805 Active 2020 [facility] null, [facility] 1 16:27:31 Polycyst ic ovary syndrome 760883811 Active 2020 [facility] 1 16:27:48 Uterine adenomyo sis 354620697 Active 2021 [facility], [facility] 2 10:43:32 Mood disorder 75070132 Active 2019 [facility] 2 10:43:32 Patient encounte r status 982941159 Active 2019 [facility] 2 10:43:32 Abnormal cervical Papanico laou smear 671667827 Active 2021 [facility] 2 10:43:32 Obstruct eden sleep apnea syndrome 59229867 Active 2021 [facility], [facility] 2 10:43:32 Generali zed anxiety disorder 39384413 Active 2019 [facility] 2 10:43:32 Uses IUD (intraut erine device) contrace ption 973888081 Completed 202106/20/2022 Removal Reason: clinical study particip ant Erma Marrufo CNM [address] [place] [address], [address] Floor, [place], [address] [place] [address] 3 17:36:12 Severe obesity 87115907906 104 Active 2021 Ginger Megan null, [facility] 2 10:43:32 Ventricu lar prematur e beats 33318081 Active 2021 Ginger Megan null, [facility] 2 10:43:32 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 Procedures Surgical History Date Name Laterality Status Provider Name and Address Organization Details Recorded Time 03/13/19 25 U/S BARREL AND RECEIVER ALIGNER Transvaginal completed Mary Beth Sanchez [facility] 03/05/2024 07:50:09 08/03/19 23 U/S BARREL AND RECEIVER ALIGNER Transvaginal completed CURT KAMARA DO [address], [place], [address], [facility] 08/02/2022 09:43:14 06/21/19 23 IUD Removal completed Erma Marrufo CNM [address], [address], [place], [address], [facility] 06/20/2022 17:33:53 06/13/19 23 U/S BARREL AND RECEIVER ALIGNER Transvaginal completed CURT KAMARA DO [address], [place], [address], [facility] 06/12/2022 17:25:03 04/25/19 23 Date of Last Pap Smear completed Ginger Guzman [facility] 05/04/2022 10:22:46 01/10/20 22 U/S BARREL AND RECEIVER ALIGNER Transvaginal completed CURT KAMARA DO [address], [place], [address], [facility] 01/09/2022 17:21:17 11/11/19 22 U/S BARREL AND RECEIVER ALIGNER Transvaginal completed CURT KAMARA DO [address], [place], [address], [facility] 11/10/2021 15:00:16 09/23/19 22 LAPAROSCOPY, SURGICAL WITH FULGURATION/EXCI MARLEN OF LESIONS OF THE OVARY/PELVIC VISCERA/PERITONE AL SURFACE (SURG) completed Ginger Guzman [facility] 09/26/2021 12:11:54 07/12/19 22 U/S BARREL AND RECEIVER ALIGNER Transvaginal completed CURT KAMARA DO [address], [place], [address], [facility] 07/11/2021 13:31:25 05/10/19 22 U/S BARREL AND RECEIVER ALIGNER Transvaginal completed CURT KAMARA DO [address], [place], [address], [facility] 05/09/2021 13:50:13 03/13/19 22 U/S BARREL AND RECEIVER ALIGNER Transvaginal completed CURT KAMARA DO [address], [address] [facility], [place], [address], [facility] 03/13/2021 12:34:42 02/18/19 22 Endometrial Biopsy completed Rebecca Lucas [facility] 05/17/2023 16:50:39 10/11/19 21 U/S BARREL AND RECEIVER ALIGNER Transvaginal completed CURT KAMARA, DO [address], [place], [address], [place] [facility] 10/10/2020 14:12:18 09/06/19 21 U/S BARREL AND RECEIVER ALIGNER Transvaginal cancelled Ginger Guzman [facility] 08/30/2020 12:11:05 05/27/19 21 U/S BARREL AND RECEIVER ALIGNER Transvaginal completed CURT KAMARA, DO [address], [place], [address], [place] [facility] 05/26/2020 18:03:06 06/19/19 16 Breast reduction completed Ginger Guzman [facility] 05/26/2020 16:25:55 02/18/19 16 Breast Surgery completed Rebecca Lucas [facility] 05/17/2023 16:50:39 02/18/19 13 Endometrial Biopsy completed Rebeccacolette Lucas [facility] 05/17/2023 16:50:39 02/18/19 12 laparoscopy completed Aniyah Coates [facility] 10/10/2020 11:44:30 Imaging Results Imaging Date Name Status LastModified by Organization Details LastModified Time 08/02/2022 ultrasound images completed [email or web address] [facility] [id number] 08/02/2022 14:53:25 03/13/2024 US, transvaginal completed [email or web address] [facility] [id number] 03/16/2024 13:43:08 Procedure Notes None recorded. Medical Equipment None Reported. Allergies Allergen ID Allergen Name Allergen Category Reaction Reaction Severity Criticality Documentation Date Start Date Code Code System Note Provider Name and Address Organization Details Recorded Time 0758622 grass pollen environme nt,medica tion itching severe Not available 07/11/2021 [id number] UNK Ginger Guzman null, [facility] 12:39:54 Medications Name Sig Start Date Stop Date Status Note LastModified by Organization Details LastModified Time Prescript ion - Prior Authoriza tion Request 03/20 /2024 completed Not Available Not Available Not Available [...] and Address Organization Details Last Updated DateTime 08/02/2022 168.91 cm 44.4 kg/m2 421781.7 1 g 116 mm[Hg] 78 mm[Hg] Ginger Guzman [facility] 3 09:19:02 Date Recorded Body height Body mass index (BMI) Body weight Systolic blood pressure Diastolic blood pressure Provider Name and Address Organization Details Last Updated DateTime 05/17/2023 168.91 cm 44.7 kg/m2 259961.1 7 g 124 mm[Hg] 80 mm[Hg] Rebecca Lucas [facility] 4 16:49:46 Date Recorded Body height Body mass index (BMI) Body weight Systolic blood pressure Diastolic blood pressure Provider Name and Address Organization Details Last Updated DateTime 02/04/2024 168.91 cm 42.5 kg/m2 667705.6 g 120 mm[Hg] 86 mm[Hg] Sukhdev Hill [facility] 4 16:36:24 Date Recorded Body height Body mass index (BMI) Body weight Systolic blood pressure Diastolic blood pressure Provider Name and Address Organization Details Last Updated DateTime 03/02/2024 168.91 cm 42.9 kg/m2 516300.5 g 126 mm[Hg] 82 mm[Hg] Sukhdev Sanchezzlyn [facility] 16:00:32 Date Recorded Body height Body mass index (BMI) Body weight Systolic blood pressure Diastolic blood pressure Provider Name and Address Organization Details Last Updated DateTime 03/13/2024 168.91 cm 41.8 kg/m2 328280.7 9 g 120 mm[Hg] 78 mm[Hg] Sukhdev Liz [facility] 5 09:07:18 Social History Question Answer Notes LastModified by Organizat ion Details LastModified Time Tobacco Smoking Status Never Smoker Not Available [facility] 04/24/2022 09:56:27 What Is Your Level Of [...] Or The Highest Degree You Have Received? [id number] Information not available 05/17/2023 What Is Your [...] Anxious, Or Unable To Sleep At Night)? [id number] Information not available 05/17/2023 How Many Years [...] has 2 Brothers Medical History Condition Response Depression Y Anxiety Disorder Y Heart Problems Y Asthma Y Gynecological History Statement/Question Response [...] Immunizations Vaccine Type Date Status Note Provider Nam e and Address Organization Details Recorded Time COVID-19, mRNA, LNP-S, PF, 100 mcg/0.5mL dose or 50 mcg/0.25mL dose 07/08/2020 completed Not Available [facility] 09:17:42 COVID-19, mRNA, LNP-S, PF, 100 mcg/0.5mL dose or 50 mcg/0.25mL dose 06/15/[address] - [facility] 06/12/2022 16:24:21 Past Encounters Encounter ID Performer Location Encounter Start Date Encounter Closed Date Diagnosis/Indication Diagnosis SNOMED-CT Code Diagnosis ICD10 Code Diagnosis Note [id number] CURT KAMARA DO [facility] [address] [facility] [place] [address] 05/26/2020 15:59:48 05/26/2020 17:34:03 Uterine adenomyosis 222311572 N80.0 as above Endometrio sis (clinical) 317944674 N80.9 History reviewed w/pt, extensive h/o endometrio sis w/ several failed therapies, failure for various reasons however at this time her current regimen is no longer adequately controllin g her pelvic pain/dypar eunia/AUB. IUD in place. Discussed options w/ pt: ? of L/S w/ replacemen t of IUD Vs GnRH agonist/an tagonist w/ IUD in place-malathi mmend Orilissa w/ IUD. US today w/ 6cm RV uterus w/ inhomogene ous uterine parenchyma , irregular EE w/ complex fluid in cavity w/ IUD in place. Right ovary/adne xa wnl. Left ovary in cul-de-sac w/ 3cm largely anechoic cyst. Findings d/w pt. Persistent cyst on left, pt relays h/o cyst in past, however not c/w endometrio ma-likely benign serous cystadenom a. Exp mgt at this time. After discussion w/ pt, will start Orilissa 200mg BID, no add back therapy at this time. D/w pt call w/ sx prn. f/u in 2m w/ repeat u/s at that time as well or sooner prn. Polycystic ovary syndrome 884450697 E28.2 History reviewed w/ pt, on Metformin 1000mg BID, d/w pt, near target dose. Advised lifestyle modificati on. Stable w/ current mgt, will address pain/endom etriosis sx primarily at this time Dyspareunia 94750224 N94 .10 as above Vaginal discharge 347029 006 N89.8 likely 2/2 hormonal suppressio n w/ aygestin, monitor w/ changes as above Pain in pelvis 52507257 R10.2 as above Cyst of left ovary 38260 61466 8566640 N83.202 f/u u/s w/ f/u as above. [id number] CURT KAMARA, DO TAY1 [address] [facility] [place],[facility] [address] [place] [address] 10/10/2020 12:12:56 10/10/2020 13:18:21 Cyst of left ovary 1051517245 9093773 N83.202 US today FF in cavity w/ IUD in place, b/l ovaries/ad nexa wnl-left ovarian cyst resolved. Findings d/w pt, reassuranc e offered. Pt w/o vaginal bleeding, will get f/u u/s for fluid in cavity in 3m w/ pelvic pain f/u as above. Endometrio sis (clinical) 791068581 N80.9 Pt doing well w/ Orilissa, +SEs of vasomotor sx and joint pain. Discussed restarting Aygestin for add back therapy, will restart. Will get f/u in 3m or prn sooner. Prolapse o f female genital organs 67686702 N81.9 referred to PT Endometrium thickened 44 1749629 R93.89 as above, irregular fluid w/in cavity, will get f/u as above History of abnormal cervical Papanicolaou smear 143059926 Z87.42 f/u due, will schedule AOV at time of next f/u [id number] CURT KAMARA DO [facility] [address] [address] [place] [address] 01/09/2021 11:11:21 01/09/2021 11:57:13 Gynecologic examination 44418631 Z01.419 Routine exam, health maintenanc eScreening up to date w/ PCPDiscuss ed diet/exerc ise/self care Endometrio sis (clinical) 311692585 N80.9 Pt doing well w/ Orilissa, will switch to ERT from Aygestin 2/2 cramping.f /u in 02/2021 as scheduled Polycystic ovary syndrome [id number] E28.2 Metformin 2000mg/day per PCP Depression screening 171 475313 Z13.31 pos, follows w/ psych and therapist [id number] CURT KAMARA DO [facility] [address] [place] [address] 03/13/2021 11:21:35 03/13/2021 12:30:33 Endometriosis (clinical) 998875591 N80.9 as aboveResta rt Orilissa w/ add back therapy-ER T 37.5mcg patch Pain in pelvis 63603945 R10.2 US today w/ RV uterus w/IUD inplace at fundus. Left ovary w/ small collapsing cyst, Right ovary w/ 4cm complex cyst-moth eaten appearance -suspect CL cyst. Findings d/w pt, likely physiologi c now that pt is off Orilissa x 1 month and pain returning 2/2 the same. orilissa pending appeal, samples given to restart. Will get f/u w/ u/s in 2m or prn sooner Cyst of right ovary 1223 [id number] N83.201 as above, f/u in 2m [id number] CURT KAMARA DO [facility] [address] [place] [address] 05/09/2021 12:38:21 05/09/2021 14:11:33 Cyst of ovary 91210244 N83.209 right resolvedle ft ovarian cyst-4cm, will f/u as above Pain in pelvis 15326211 R10.2 US today w/ RV uterus w/IUD inplace at fundus. Right/adne xa wnl, cyst resolvved. left ovary w/ 4cm simple appearing cyst. Findings d/w pt, likely physiologi c-inconsis tent orilissa use. Will f/u in 2m. D/w pt, abdominal pain, ? if associated w/ the same Vs other medication changes. Advised to evaluate w/ consistent use. Will plan for f/u in 2m, if ongoing will schedule for L/S excision w/ IUD exchange to Mirena. Pelvic floor PT Endometrio sis of pelvis 42828034 N80.3 Orilissa per plan Incomplete uterovaginal prolapse 914093235 N81.2 PT as above [id number] DO KENDY GOLDMAN [address] [place] [address] 07/11/2021 12:33:30 07/11/2021 13:18:47 Cyst of ovary 31480356 N83.209 resolved as above Endometrio sis (clinical) 083638481 N80.9 continue current regimen w/ orilissa pending surgical mgt Pain in pelvis 20375585 R10.2 US today w/ RV uterus w/IUD inplace at fundus. b/l ovaries/ad nexa wnl-cysts resolved.D iscussed plan, given ongoing pain, failed medical therapy, discussed pros/cons of surgical mgt w/ Hysterosco py/D&C, Laparoscop y w/ excision of endometrio sis, IUD replacemen t. Pt agrees, will schedule. Pt will have records sent from previous sx in 2011. [id number] DO KENDY GOLDMAN [address] [place] [address] 08/31/2021 15:41:56 08/31/2021 16:12:58 Pre-surgery evaluation 056691490 Z01.818 Hysterosco py/D&C, Laparoscop y w/ excision and fulguratio n of endometrio sis, IUD removal and reinsertio n. Pain in pelvis 87013785 R10.2 Discussed plan, given ongoing pain, failed medical therapy, discussed pros/cons of surgical mgt w/ Hysterosco py/D&C, Laparoscop y w/ excision of endometrio sis, IUD replacemen t. Pt agrees, will schedule. Pt will have records sent from previous sx in 2011. Preoperati ve instructio ns reviewed. Procedure reviewed including the potential risks and complicati ons, not limited to: bleeding/i nfection/i njury to bowel, bladder, ureters, vessels/po ssible laparotomy /DVT/PE-co nsent signed. Post operative instructio ns/expecta tions reviewed w/ patient. Informatio n given, questions answered. Prescripti ons given for post op pain. Pt to f/u 2weeks post op. Endometrio sis (clinical) 966508696 N80.9 as above [id number] CURT KAMARA DO [facility] [address] [place] [address] 10/05/2021 15:43:08 10/05/2021 16:11:42 Postoperative visit 010420642 Z09 Doing well, intraopera tive findings and pathology report reviewed. Precaution s reviewed, cleared for regular activities . f/u in 3 months or prn sooner. Uterine adenomyosis 7843 23513 N80.0 no active endo at L/S, d/w pt, pain related to adenomyosi s. IUD in place, continue orilissa 1x/day, f/u in 3m or prn sooner. [id number] CURT KAMARA DO [facility] [address] [facility] [place] [address] 09/28/2021 16:20:57 09/28/2021 17:04:37 Skin irritation 612788253 L30.9 Instructed to keep umbilicus dry and can wash as needed through out the day. Has Hibiclense to clean incision. Instructed to call if concerning findings. F/u as scheduled 10/[address] Shukla Postoperative pain 16624 0707 G89.18 Encouraged to continue tylenol and ibuprofen, heat to abdomen if cramping, ice to incision if needed. Requested Oxycodone and will defer to Dr Kamara. Discussed dependence with prolonged use. F/u as scheduled 10/[address] Shukla [id number] CURT KAMARA DO [facility] [address] [facility] [place] [address] 11/10/2021 14:26:22 11/10/2021 15:13:26 Abnormal uterine bleeding [id number] 9100 N93.9 AUB w/ IUD in place, replaced at time of sx in 09/2021. Bleeding on and off since, heavy at times, increase in cramping pain over past few days, +clotting. Orilissa ran out this week. Exam w/ strings visible at os. US w/ 6cm RV uterus w/ EE 7mm near fundus, IUD appears a bit low in cavity, not flush w/ fundus. b/l ovaries/ad nexa wnl. Findings d/w pt, IUD a bit lower than ideal, however not certain cramping associated w/ this or being off Orilissa. Advised to get back on Orilissa and monitor. Will f/u as scheduled in 12/2021-re check IUD position at that time. Precaution s reviewed, f/u sooner prn. Uterine adenomyosis 7843 97753 N80.0 no active endo at L/S, d/w pt, pain related to adenomyosi s. Resume Orilissa as above, consider going back to 2 tabs daily. f/u as above Endometrio sis (clinical) 692814595 N80.9 as above Pain in pelvis 42459110 R10.2 acute increase as above, f/u in 12/2021 [id number] CURT KAMARA DO [facility] [address] [place] [address] 01/09/2022 16:58:44 01/09/2022 17:20:00 Pain in pelvis 64906469 R10.2 doing better, never started Orilissa as per plan, now doing well w/o it. Discussed pros/cons of starting, will hold off at this time given improvemen ts. f/u w/ AOV or prn sooner. IUD check 800496348 Z30. 431 US today to check IUD position, noted to be lower last u/s for acute pelvic pain. US today w/ 6cm RV uterus w/ irregular EE, IUD a bit low in cavity below fundus, unchanged from previous. b/l ovaries/ad nexa wnl. Findings d/w pt, not ideal, however given clinically improved will continue w/ method. f/u w/ AOV or prn sooner. [id number] DO KENDY GOLDMAN2 [address] [place] [address] 04/24/2022 09:49:55 04/24/2022 10:44:25 Gynecologic examination 66762541 Z01.419 [facility] Depression screening 171 332947 Z13.31 pt declined to answer, follows w/ psych/ther apist Endometrio sis (clinical) 928984172 N80.9 IUD not in ideal place, now amenorrhei c w/ cramping, discussed ? of replacemen t. Encouraged to start orilissa once approved, f/u for IUD exchange Polycystic ovary syndrome 429282839 E28.2 Metformin 2000mg/day per PCP Pain in pelvis 89342286 R10.2 US today w/ 7cm RV uterus w/ IUD somewhat slipped position from fundus, thin EE, right ovary/adne xa wnl, Left ovary w/ 4cm simple cyst, 2cm daughter cyst. Findings d/w pt, likely pain related to known adenomyosi s, IUD out of place Breast tenderness 142254 07 N64.4 N63.20 b/l tenderness , left breast w/ 1cm mobile lump at 1-2 OC. Will get imaging [id number] DO KENDY GOLDMAN2 [address] [place] [address] 06/12/2022 16:18:07 06/12/2022 16:59:05 Endometriosis (clinical) 935248391 N80.9 Discussed tx thus far, currently w/ poor control w/ IUD, not in good position, had planned to exchange w/ last visit, however pt learned of study and ? of whether to participat e. Discussed pros/cons of participat ion in study. Pt will consider. If she decides to participat e will return w/ either JN or MN to remove IUD for study, if not will return for IUD exchange. Cyst of left ovary 86632 36334 4042283 N83.202 US today w/ 7cm RV uterus w/ IUD in HANANE on 3D mid-gifford l imaging, thin EE, left ovary w/ collapsed cyst, adnexa wnl, Right ovary w/ ~4cm simple cyst, trace FF in right adnexa. Findings d/w pt, Left ovarian cyst resolved, right simple appearing cyst-likel y follicular . will get f/u after suppressio n in 6wk or prn sooner. Cyst of right ovary 1223 093844 2590098 N83.201 d/w pt, 4cm simple appearing right ovarian cyst, left resolved as above.Advi sed OCPs x 6wks w/ recheck, f/u after u/s or prn sooner. [id number] Erma Marrufo CNM [facility] [address] [place] [address] 06/20/2022 15:45:24 06/20/2022 16:09:04 Removal of intrauterine device 47770431 Z30.432 Discussed Condoms during medical Study. Advised when to call office with concerns. F/u scheduled 07/[address] Shukla [id number] CURT KAMARA DO [facility] [address] [place] [address] 08/02/2022 09:17:17 08/02/2022 09:43:19 Endometriosis (clinical) 992043225 N80.9 IUD out, in washout period prior to starting study, precaution s reviewed, f/u w/ AOV or prn sooner. Cyst of right ovary 1223 135229 9126486 N83.201 US today w/ 7cm RV uterus w/ 3-4mm EE-homogen eous, b/l ovaries/ad nexa wnl, left w/ collapsing CL cyst. Findings d/w pt, normal u/s, cyst resolved, reassuranc e offered. f/u prn [id number] MIKHAIL JIMENEZ APRN [facility] [address] [place] [address] 05/17/2023 16:33:45 06/15/2023 19:14:02 Gynecologic examination 80392666 Z01.419 Annual [employer] Exam; flu vaccine- declined , Covid vaccine-x 2, , Exam normal, PAP not performed had in 2022 and negative, pt is sexually active not currently due to no partner, is on oral control. Pt has no [employer] complaints currently. Pt has no family hx of cancer. Pt educated on self breast exams and proper technique, exercise 5 x a week for 30 min, proper nutrition including importance of calcium in diet, abstaining from drugs, alcohol, and cigarettes . Reviewed STDs/HPV. Pt also counseled on seeing PCP for health maintenanc e visits. Follow up in one year for annual. Depression screening 171 362770 Z13.31 Pt has a hx on medication has psychiatri st and has Talk Therapist. Contracept ion care management 613471213 Z30.9 Pt using Oral control Lo Loestrin with Fe given to her by a study she is in. Endometrio sis (clinical) 887400427 N80.9 Pt currently taking Orlissa 150 mg daily in a study given to her by them. [id number] DONY WILLARD1 [address] [place] [address] 02/04/2024 16:08:53 02/04/2024 16:50:47 Acute vaginitis 60330939 N76.0 No discharge, Aptima obtained, declined GC/CH states had done recently, will await cx to treat. No f/u at this time. [id number] DONY WILLARD2 [address] [place] [address] 03/02/2024 15:49:03 03/02/2024 16:14:39 Abnormal uterine bleeding 6203647058 9100 N93.9 No bleeding today appears episode [...] for a transvagin al ultrasound with MDs. [id number] GRACE NAQVI MD [facility] [address] [place] [address] 03/13/2024 09:02:59 03/13/2024 09:28:35 Abnormal uterine bleeding 2226215346 9100 N93.9 Pt informed TV US in [...] instead. She will let us know. Dyspareunia 03367222 N94 .10 Could be related to the uterine position; will try adjust position during sex and monitor pain. Health Concerns Section Related Observation LastModified by Organization Detai ls LastModified Time None Recorded Concern Status LastModified by Organization Details LastModified Time None Recorded Advance Directives Directive None Recorded Payers Encounter Date Sequence Insurance Name Policy Number Policy Soni Covered Member ID Soni Member ID Guarantor Name 08/02/2022 1 [facility] (PPO) [id number] Paz Kearnsan [id number] Paz Aileen 05/17/2023 1 [facility] (PP[employer]) [id number] Paz Mecosta [id number] Paz Mecosta 02/04/2024 1 [facility] (PP[employer]) [id number] Paz Mecosta [id number] Paz Mecosta 03/02/2024 1 [facility] (PPO) [id number] Paz Mecosta [id number] Paz Mecosta 03/13/2024 1 [facility] (O) [id number] Paz Mecosta [id number] Paz Gallagher Notes Date Note Type Note Provider Name and Address Organization Details Recorded Time 08/02/2022 text/html Pt presents for f/u of right ovarian cyst noted on U/s to check IUD position/pelvic pain. Pt w/ h/o endometriosis/adenomyo sis. s/p L/S in 09/2021-no endometriosis seen at time of L/S, IUD placed. Pt noted to have malpositioned IUD s/p procedure, decided to remove IUD to participate in a study instead of replacing IUD. Pt now in washout period prior to starting the study. LMP this past saturday. Very heavy. No new concerns today. CURT KAMARA DO [address] [facility] [place], [address], [facility] 08/02/2022 09:47:05 05/17/2023 text/html [facility] Annual GYNRe ported bypatient.History:no gynecologic complaints; PCOS, endometriosis, adenomyosis currently in a study. Irregular menses. Menstrual cycle:Irregular cycle intervals Urinary symptoms:No hematuria; No incontinence Vulva:No genital lesion Vagina:Normal vaginal discharge Breast:No breast pain; No breast lump; No nipple discharge Current Contraception:Not sexually active; no partner Sexual activity:sexually active yes male partner Menopausal symptoms:Normal vaginal lubrication Psychological symptoms:Depression;An xiety; on medication no effect-psychiatrist aware and trialing new medication, Talk Therapy weekly. Preventive measures:Encourage self breast examination; Encourage regular exercise; Encourage no tobacco use; Followed with pap smear and high risk HPV typing every 3 years MIKHAIL JIMENEZ APRN [address] [facility], [address] [place] [address], [phone], [facility] 05/17/2023 17:14:11 02/04/2024 text/html Pt states thinks has BV infection, has an odor, itching on vulva, no discharge, and spotting of blood with cramping. Pt states had BV about a month ago did telehealth with her insurance given oral metronidazole felt symptoms improved-did blood work STDs and was negative. Then had a yeast infection right after that was treated with Diflucan pills again did telehealth for this with insurance company. MIKHAIL JIMENEZ APRN [address] [facility] [place], [address], [facility] 02/04/2024 21:18:43 03/02/2024 text/html [facility] Abnormal BleedingReported bypatient.Onset/Timing :present cycle Duration:10-15 days/month Context:current contraception: Associated Symptoms:no fatigue; no dizziness; no shortness of breath; no CP/palpitations; no vaginal discharge Pt states had her menses for 9 days, then stopped for a week, now has been 12 days on her menses, light today/appears to be slowing down, states has been heavier and more cramps than usual, had clots size of dimes and quarters. Pt taking oral control unsure type due to in a study and is taking Orlissa. Pt denies missing any tablets of her control. Pt also states on current control for one year now/doing this study. MIKHAIL JIMENEZ APRN [address] [facility], [address] [place] [address], [phone], [facility] 03/03/2024 08:25:50 03/13/2024 text/html [facility] Abnormal BleedingReported bypatient.Onset/Timing :past 3-5 cycles Duration:10-15 [...] with intercourse and menses GRACE NAQVI MD [address] [facility], [address] [place] [address], [phone], [facility] 03/13/2024 09:32:51 OBGyn Episode No OBEpisode recorded.
--- OUTSIDE RECORDS SUMMARY | 2024-04-01 14:41 | XMS_ITS | Clinical Summary ---
Author Organization [facility] Address [address] [place] [address] Care Team Providers Care Pool Technician Name Role Phone Alessandra Anderson ASTON Primary Care Provider [phone] Surgical History Surgery Date Site/Laterality Comments BREAST SURGERY PROCEDURE:BREAST SURGERY;COMMENT:reduction OTHER SURGICAL HISTORY PROCEDURE:TN PELVIC EXAMINATION W/ANESTHESIA OTHER THAN LOCAL;COMMENT:laparoscopy ENDOMETRIAL FULGURATION 09/22/2021 N/A PROCEDURE:ENDOMETRIAL FULGURATION;COMMENT:Procedure: LAPAROSCOPY, SURGICAL WITH FULGURATION/EXCISION OF LESIONS OF THE OVARY/PELVIC VISCERA/PERITONEAL SURFACE; Surgeon: Liss Lopez DO; Location: [facility] MAIN OPERATING ROOM; Service: Gynecology; Laterality: N/A; DILATION AND CURETTAGE OF UTERUS 09/22/2021 N/A PROCEDURE:DILATION AND CURETTAGE OF UTERUS;COMMENT:Procedure: HYSTEROSCOPY D&C; Surgeon: Liss Lopez DO; Location: [facility] MAIN OPERATING ROOM; Service: Gynecology; Laterality: N/A; INTRAUTERINE DEVICE INSERTION 09/22/2021 N/A PROCEDURE:INTRAUTERINE DEVICE INSERTION;COMMENT:Procedure: IUD REMOVAL AND REINSERTION; Surgeon: Liss Lopez DO; Location: [facility] MAIN OPERATING ROOM; Service: Gynecology; Laterality: N/A; Medical History Medical History Date Comments Arrhythmia DX:Arrhythmia;CO MMENT:PVCs Asthma DX:Asthma Sleep apnea DX:Sleep apnea;C OMMENT:BiPAP Urinary tract infection DX:Urina ry tract infection Anxiety DX:Anxiety Depression DX:Depression Visual impairment DX:Visual impa irment;COMMENT:glasses Narcolepsy DX:Narcolepsy Family History Medical History Relation Name Comments Anxiety disorder Maternal Grandmother Depression Maternal Grandmother Anxiety disorder Mother Depression Mother Alcohol abuse Paternal Grandfather Relation Name Status Comments Maternal Grandmother Mother Paternal Grandfather Social History Tobacco Use Types Packs/Day Years Used Date Smoking Tobacco: Never Smokeless Tobacco: Never Alcohol Use Standard Drinks/Week Comments Yes 0 (1 standard drink = 0.6 oz pur e alcohol) Comments Unknown Sex and Gender Information Value Date Recorded Sex Assigned at Not on file Legal Sex Female 5:15 AM EST Gender Identity Not on file Sexual Orientation Not on file Obstetrics History Last Filed Vital Signs Vital Sign Reading Time Taken Comments Blood Pressure 130/87 09/08/2021 4:53 PM EDT Sit ting Right arm Pulse 102 09/08/2021 4:53 PM EDT Temperature - - Respiratory Rate - - Oxygen Saturation - - Inhaled Oxygen Concentration - - Weight - - Height - - Body Mass Index - - Plan of Treatment Health Maintenance Due Date Last Done Comments DTaP,Tdap,and Td Vaccines (1 - Tdap) 2012 Hepatitis B Vaccines (1 of 3 - 19+ 3-dose series) 2012 Pneumococcal Vaccine: Pediat rics (0 to 5 Years) and At-Risk Patients (6 to 64 Years) (1 of 2 - PCV) 2012 Cervical Cancer Screening: P ap Smear 2014 Cholesterol Screening (Lipid Panel) 01/21/2022 Depression Screening 01/21/2022 HIV Screening 01/21/2022 Hepatitis C Screening 01/21/2022 Social Influencers of Health Screening 01/21/2022 COVID-19 Vaccine (2 - 2023-2 5 season) 2023 07/08/2020 Influenza Vaccine (#1) 2023 HIB Vaccines Aged Out No longer eligi ble based on patient's age to complete this topic HPV Vaccines Aged Out No longer eligi ble based on patient's age to complete this topic Hepatitis A Vaccines Aged Out No long er eligible based on patient's age to complete this topic IPV Vaccines Aged Out No longer eligi ble based on patient's age to complete this topic MMR Vaccines Aged Out No longer eligi ble based on patient's age to complete this topic Meningococcal ACWY Vaccine Aged Out N o longer eligible based on patient's age to complete this topic Meningococcal B Vacine Aged Out No lo nger eligible based on patient's age to complete this topic RSV Immunization Patients Un alejandro 20 months Aged Out No longer eligible b ased on patient's age to complete this topic Varicella Vaccines Aged Out No longer eligible based on patient's age to complete this topic Care Teams Pool Technician Relationship Specialty Start Date End Date Alessandra Anderson, ASTON [address] [place] [address] PCP - General Family Medicine 09/21/21
--- OUTSIDE RECORDS SUMMARY | 2024-04-01 14:41 | XMS_ITS | Clinical Summary ---
Author Organization [facility] Address [address] [place] [address] Care Team Providers Care Rn Referral Name Role Phone Alessandra Anderson Primary Care Provider [phone] Allergies Active Allergy Reactions Criticality Noted Date Comments Adhesive Tape 09/18/2021 bandaids Grass 02/22/2021 Medications Medication Sig Dispensed Refills Start Date End Date Status metFORMIN (GLUCOPHAGE-XR) ER 24 hr tablet 500 mg Take 1,000 mg by mouth 2 (two) times a day. 0 01/02/2020 Active amphetamine-dextroa mphetamine (ADDERALL XR) 20 MG 24 hr capsule Take 20 mg by mouth 2 (two) times a day. 0 Active FLUoxetine (PROzac) 40 MG capsule Take 40 mg by mouth daily. 0 Active Levonorgestrel (LILETTA, 52 MG, IU) by Intrauterine route. 0 Active UNABLE TO FIND Med Name: Estrogen patch 0 Active CALCIUM PO Take by mouth daily. 0 Acti ve [place]-3 Fatty Acids (FISH OIL PO) Take by mouth daily. 0 A ctive Cyanocobalamin (VITAMIN B 12 PO) Take by mouth daily. 0 Active VITAMIN D PO Take by mouth daily. 0 Ac tive Active Problems Problem Noted Date Diagnosed Date Uses intrauterine device for control 03/08 Severe obesity 02/22/2021 Adenomyosis of uterus 02/22/2021 Abnormal cervical Papanicolaou smear 02/22/2021 Overview: ECC and Bx negative. Plan to repeat pap with co-testing in 6 months (July 2019). Pt notified of results and plan of care.repeat colpo, pap, bx 6 o'clcock, and ECC performed.index pap: ASCUS + HPV. Colpo c/w LGSIL. Ventricular premature beats 02/22/2021 Obstructive sleep apnea syndrome 02/22/2021 Sleep apnea 05/26/2020 Asthma 05/26/2020 Polycystic ovary syndrome 05/26/2020 Endometriosis 05/26/2020 AYAAN (generalized anxiety disorder) 10/06/2019 Encounter for long-term (current) use of medicat ions 10/06/2019 Mood disorder 10/06/2019 Cervical intraepithelial neoplasia grade 2 07/29 Overview: Pt has chosen expectant management. Repeat colpo in 6 months. Resolved Problems Problem Noted Date Diagnosed Date Resolved Date Bipolar II disorder 08/12/2020 02/22/19 22 Recurrent major depressive d isorder, in partial remission 10/06/2019 02/22/2021 Immunizations Name Administration Dates Next Due Covid-19 (Moderna 12+) 100mcg/0.5mL dosage 07/08 Family History Medical History Relation Name Comments Anxiety disorder Maternal Grandmother Depression Maternal Grandmother Anxiety disorder Mother Depression Mother Alcohol abuse Paternal Grandfather Relation Name Status Comments Maternal Grandmother Mother Paternal Grandfather Social History Tobacco Use Types Packs/Day Years Used Date Smoking Tobacco: Never Smokeless Tobacco: Never Alcohol Use Standard Drinks/Week Comments Yes 0 (1 standard drink = 0.6 oz pur e alcohol) 3/wk Sex and Gender Information Value Date Recorded Sex Assigned at Female 09/21/2021 1:41 PM EDT Gender Identity Not on file Sexual Orientation Not on file Job Start Date Occupation Industry Not on file Not on file Not on file Last Filed Vital Signs Vital Sign Reading Time Taken Comments Blood Pressure 136/85 09/22/2021 1:00 PM EDT Pulse 91 09/22/2021 1:00 PM EDT Temperature 36.7 ??C (98 ??F) 09/22/2021 12:40 PM EDT Respiratory Rate 21 09/22/2021 1:00 PM EDT Oxygen Saturation 95% 09/22/2021 1:00 PM EDT Inhaled Oxygen Concentration - - Weight 114.3 kg (252 lb) 09/18/2021 2:42 PM EDT Height 170.2 cm (5' 7 ) 09/18/2021 2:42 PM EDT Body Mass Index 39.47 09/18/2021 2:42 PM EDT Plan of Treatment Health Maintenance Due Date Last Done Comments Hepatitis B Vaccines (1 of 3 - 3-dose series) 1993 Hepatitis C Screening 1993 Depression Screening 2005 BMI Counseling 06/07/2011 Preventative Health Evaluation 06/07/2011 DTap / Tdap / Td (1 - Tdap) 2012 Cervical Cancer Screening (Pap Smear) 2014 COVID-19 Vaccine ( season) 2023 07/08/2020 Influenza Vaccine (#1) 2023 , 02/20/2019, 03/07/2018, Additional history exists Pneumococcal Vaccine Aged Out No long er eligible based on patient's age to complete this topic RSV Ped < 20 months Aged Out No longe r eligible based on patient's age to complete this topic Care Teams Rn Referral Relationship Specialty Start Date End Date Alessandra Anderson [address] [place] [address] PCP - General Family Medicine 09/21/21
--- OUTSIDE RECORDS SUMMARY | 2024-04-01 14:41 | XMS_ITS ---
Author Name [facility] Organization Unknown History of Medication Use Medication Directions Dispensed Refills Start Date End Date Status metronidazole 0.75 % (37.5 mg/5 gram) vaginal gel INSERT 1 APPLICATORFUL VAGINALLY EVERY DAY AT BEDTIME FOR 5 DAYS active dextroamphetamine-amph etamine ER 20 mg 24hr capsule,extend release TAKE 1 CAPSULE BY MOUTH TWICE DAILY, SECOND DOSE NO LATER THAN 1PM TAKE 1 CAPSULE BY MOUTH TWICE DAILY, SECOND DOSE NO LATER THAN 1PM completed buspirone 10 mg tablet TAKE 1 TABLET BY MOUTH TWICE A DAY active ciprofloxacin 0.3 % eye drops PLEASE SEE ATTACHED FOR DETAILED DIRECTIONS PLEASE SEE ATTACHED FOR DETAILED DIRECTIONS completed fluoxetine 40 mg capsule TAKE 1 CAPSULE BY MOUTH EVERY DAY 01/10/20 22 completed benztropine 1 mg tablet TAKE ONE TABLET BY MOUTH ONCE DAILY BEFORE BEDTIME TAKE ONE TABLET BY MOUTH ONCE DAILY BEFORE BEDTIME completed venlafaxine 37.5 mg tablet Take 1 tablet twice a day by oral route. 02/17/20 21 completed Orilissa 150 mg tablet Take 1 tablet every day by oral route. 3 04/25/19 23 completed Prozac 40 mg capsule 40 mg by oral route. 40 mg by oral route. completed famotidine 20 mg tablet TAKE 1 TABLET BY MOUTH TWICE A DAY FOR 10 DAYS TAKE 1 TABLET BY MOUTH TWICE A DAY FOR 10 DAYS completed dextroamphetamine sulfate 5 mg tablet Take 1 tablet twice a day by oral route. 07/12/19 22 completed ibuprofen 800 mg tablet TAKE 1 TABLET 3 TIMES A DAY BY ORAL ROUTE. active sertraline 25 mg tablet 25 mg by oral route. 2 09/19/19 22 completed No known medications No known medications active metformin ER 500 mg tablet,extended release 24 hr 1000 mg by oral route. 0 04/25/19 23 completed azelastine 137 mcg (0.1 %) nasal spray SPRAY 1 SPRAY INTRANASALLY TWICE A DAY NEEDED active dextroamphetamine-amph etamine ER 20 mg 24hr capsule,extend release TAKE 1 CAPSULE BY MOUTH 2 TIMES A DAY2 ND DOSE NO LATER THAN 1 PM 04/25/19 23 completed norethindrone acetate 5 mg tablet 0 09/19/19 22 completed benzonatate 200 mg capsule TAKE 1 CAPSULE BY MOUTH THREE TIMES A DAY NEEDED 03/01/19 25 completed dextroamphetamine-amph etamine ER 15 mg 24hr capsule,extend release TAKE 1 CAPSULE BY MOUTH EVERY MORNING 02/03/20 24 completed phenazopyridine 200 mg tablet Take 1 tablet 3 times a day by oral route for 3 days. 01/10/20 22 completed triamcinolone acetonide 0.025 % topical cream TAKE 1 MOHAN APPLIED TOPICALLY 2 TIMES A DAY FOR 14 DAYS active Orilissa 200 mg tablet Take 1 {tbl} by oral route. 1 09/23/19 22 completed oxycodone 5 mg tablet TAKE 1 TABLET BY MOUTH EVERY 4 HOURS 01/10/20 22 completed buspirone 5 mg tablet Take 1 tablet twice a day by oral route. active Adderall XR 15 mg capsule,extended release active ciprofloxacin 0.3 % eye drops PLEASE SEE ATTACHED FOR DETAILED DIRECTIONS 09/01/19 22 completed estradiol 0.0375 mg/24 hr semiweekly transdermal patch Apply 1 patch twice a week by transdermal route. Apply 1 patch twice a week by transdermal route. completed phenazopyridine 200 mg tablet Take 1 tablet 3 times a day by oral route for 3 days. Take 1 tablet 3 times a day by oral route for 3 days. completed duloxetine 30 mg capsule,delayed release TAKE 1 CAPSULE BY MOUTH EVERY DAY TAKE 1 CAPSULE BY MOUTH EVERY DAY completed aripiprazole 2 mg tablet TAKE 1 TABLET BY MOUTH EVERY DAY active Vraylar 1.5 mg capsule TAKE 1 CAPSULE BY MOUTH EVERY DAY 05/17/19 24 completed desvenlafaxine succinate ER 25 mg tablet,extended release 24 hr TAKE 1 TABLET BY MOUTH EVERY DAY 01/10/20 22 completed Problems Problem Status Onset Date Problem Type Date of Resoluti on Source Generalized anxiety disorder active 2019-10-06 ProblemAct [facility] Sleep apnea active 2020-05-26 ProblemAct [facility] H Mood disorder active 2019-10-06 ProblemAct [facility] Asthma active 2020-05-26 ProblemAct [facility] Postoperative pain active 2021-09-28 ProblemAct [facility] Polycystic ovary syndrome active 2020-05-26 ProblemAct [facility] Skin irritation active 2021-09-[address] [facility] Obstructive sleep apnea syndrome active 2021-02-22 ProblemAct [facility] Ventricular premature beats active 2021-02-22 ProblemAct [facility] Uterine adenomyosis active 2021-02-22 ProblemAct [facility] Endometriosis (clinical) active 2020-05-26 ProblemAct [facility] Severe obesity active 2021-02-22 ProblemAct [facility] Cervical intraepithelial neoplasia grade 2 active 2018-07-29 ProblemAct [facility] Abnormal cervical Papanicolaou smear active 2021-02-22 ProblemAct [facility] Immunizations Vaccine Date Source Lot Number Status COVID-19, mRNA, LNP-S, PF, 1 00 mcg/0.5mL dose or 50 mcg/0.25mL dose 06/15/2021 [facility] [id number] completed COVID-19, mRNA, LNP-S, PF, 1 00 mcg/0.5mL dose or 50 mcg/0.25mL dose 07/08/2020 [facility] [id number] completed
--- OUTSIDE RECORDS SUMMARY | 2024-04-01 14:41 | XMS_ITS | Continuity of Care Document ---
Author Organization [place] - [facility], [facility] Address [address] [facility] [address] [place] [address] Care Team Providers Care Geotechnical Engineering Technician Name Role Phone RIVAS MYRICK Primary Care Provider [phone] Assessment No assessment recorded. Plan of Treatment Reminders Order Date Submit Date Provider Last Modified By Organization Details Last Modified Time Details Appointments ANNUAL PSYCHOLOGICAL STRESS EVALUATOR 20 2024 04:10P M Dr. Grace Naqvi Not available Not available Not available Lab bacterial vaginosis + vaginitis panel, vaginal 2024 025 [facility], [address] [place] [address], [id number] 03/04/2024 09:11:57 CBC w/ auto diff 2024 025 [facility], [address] [place] [address], 03/14/2024 04:12:21 beta-HCG, quantitat [place], serum or plasma 2024 025 [facility], [address] [place] [address], 03/14/2024 04:12:22 TSH + free T4, serum 2024 025 apomales [facility], [address] [place] [address], 03/17/2024 08:25:08 unlisted lab - coagulati on profile (PT/PTT) 2024 025 [facility], [address] [place] [address], [id number] 03/14/2024 04:12:20 Referral None recorded. Procedures None recorded. Surgeries None recorded. Imaging None recorded. Medication Orders None recorded. Patient TargetsNo targets recorded. Patient InstructionsNo instructions recorded. Reason for Referral None Reported. Results Created Date Observation Date Name Description Value Unit Range Abnormal Flag Note LastModifiedBy Organization Detail LastModifiedTime 03/13/1903/13/2024 US, trans vagin al RAD [email or web address] [facility] [employer] [facility] [id number] 03/16/2024 13:43:08 Result Notes None recorded. Problems Name Problem SNOMED Code Status Onset Date Resolution Date Notes Provider Name and Address Organization Details Recorded Time Asthma 733138976 Active 2020 Ginger Megan null, [facility] 16:20:57 Sleep apnea 64523891 Active 2020 Ginger Megan null, [facility] 1 16:21:03 Endometr iosis (clinica l) 775266025 Active 2020 Ginger Megan [facility] 1 16:27:31 Polycyst ic ovary syndrome 649271235 Active 2020 Ginger Megan null, [facility] 1 16:27:48 Uterine adenomyo sis 904138637 Active 2021 Ginger Megan null, [facility] 2 10:43:32 Mood disorder 32009950 [facility] 10:[facility] Patient encounte r status 360344259 Active 2019 Ginger Megan null, [facility] 2 10:43:32 Abnormal cervical Papanico laou smear 415679819 Active 2021 Ginger Megan null, [facility] 2 10:43:32 Obstruct eden sleep apnea syndrome 57260150 Active 2021 Ginger Megan null, [facility] 2 10:43:32 Generali zed anxiety disorder 06103454 Active 2019 Ginger Guzman null, [facility] 2 10:43:32 Uses IUD (intraut erine device) contrace ption 304217225 Completed 202106/20/2022 Removal Reason: clinical study particip ant Erma Marrufo CNM [address], [place], [address], [facility] 3 17:36:12 Severe obesity 96035829655 104 Active 2021 Ginger Guzman null, [facility] 2 10:43:32 Ventricu lar prematur e beats 18428676 Active 2021 [facility] 2 10:43:32 Cervical intraepi thelial neoplasi a grade 2 348540471 Active 2018 [facility] 2 10:43:33 Skin irritati on 569012917 Active 2021 Erma Marrufo CNM [address] [facility] [facility], [place], [address], [facility] 2 17:18:11 Postoper ative pain 961025992 Active 2021 Erma Marrufo CNM [address] [facility], [place], [address], [facility] 2 17:19:47 Notes:Heart Problems- extra Heart beats/Adenomyosis Problem Notes None recorded. Procedures Surgical History Date Name Laterality Status Provider Name and Address Organization Details Recorded Time 03/13/19 25 U/S PSYCHOLOGICAL STRESS EVALUATOR Transvaginal completed Mary Beth Sanchez [facility] 03/05/2024 07:50:09 08/03/19 23 U/S PSYCHOLOGICAL STRESS EVALUATOR Transvaginal completed CURT KAMARA DO [address], [place], [address], [facility] 08/02/2022 09:43:14 06/21/19 IUD Removal completed Erma Marrufo CNM [address], [place], [address], [facility] 06/20/2022 17:33:53 06/13/19 23 U/S PSYCHOLOGICAL STRESS EVALUATOR Transvaginal completed CURT KAMARA DO [address], [place], [address], [facility] 06/12/2022 17:25:03 04/25/19 Date of Last Pap Smear completed Ginger Guzman [facility] 05/04/2022 10:22:46 01/10/20 22 U/S PSYCHOLOGICAL STRESS EVALUATOR Transvaginal completed CURT KAMARA DO [address], [place], [address], [facility] 01/09/2022 17:21:17 11/11/19 22 U/S PSYCHOLOGICAL STRESS EVALUATOR Transvaginal completed CURT KAMARA DO [address], [place], [address], [facility] 11/10/2021 15:00:16 09/23/19 LAPAROSCOPY, SURGICAL WITH FULGURATION/EXCI MARLEN OF LESIONS OF THE OVARY/PELVIC VISCERA/PERITONE AL SURFACE (SURG) completed Ginger Guzman [facility] 09/26/2021 12:11:54 07/12/19 22 U/S PSYCHOLOGICAL STRESS EVALUATOR Transvaginal completed CURT KAMARA DO [address], [place], [address], [facility] 07/11/2021 13:31:25 05/10/19 22 U/S PSYCHOLOGICAL STRESS EVALUATOR Transvaginal completed CURT KAMARA DO [address], [place], [address], [facility] 05/09/2021 13:50:13 03/13/19 22 U/S PSYCHOLOGICAL STRESS EVALUATOR Transvaginal completed CURT KAMARA, DO [address], [place], [address], [facility] 03/13/2021 12:34:42 02/18/19 22 Endometrial Biopsy completed Rebecca Lucas [facility] 05/17/2023 16:50:39 10/11/19 21 /S PSYCHOLOGICAL STRESS EVALUATOR Transvaginal completed CURT KAAMRA, DO [address], [place], [address], [facility] 10/10/2020 14:12:18 09/06/19 21 /S PSYCHOLOGICAL STRESS EVALUATOR Transvaginal cancelled Ginger Megan [facility] 08/30/2020 12:11:05 05/27/19 21 /S PSYCHOLOGICAL STRESS EVALUATOR Transvaginal completed CURT KAMARA, DO [address], [place], [address], [facility] 05/26/2020 18:03:06 06/19/19 16 Breast reduction completed Ginger Guzman [facility] 05/26/2020 16:25:55 02/18/19 16 Breast Surgery completed Rebecca Lucas [facility] 05/17/2023 16:50:39 02/18/19 13 Endometrial Biopsy completed Rebecca Lucas [facility] 05/17/2023 16:50:39 02/18/19 12 laparoscopy completed Aniyah Coates [facility] 10/10/2020 11:44:30 Imaging Results None recorded. Procedure Notes None recorded. Medical Equipment None Reported. Allergies Allergen ID Allergen Name Allergen Category Reaction Reaction Severity Criticality Documentation Date Start Date Code Code System Note Provider Name and Address Organization Details Recorded Time [id number] grass pollen environme nt,medica tion itching severe Not available 07/11/2021 [id number] UNK Ginger Megan null, [facility] 12:39:54 Medications Name Sig Start Date Stop [...] Updated DateTime 03/02/2024 168.91 cm 42.9 kg/m2 152961.5 g 126 mm[Hg] 82 mm[Hg] [place] [facility] 16:00:32 Social History Question Answer Notes LastModified by [...] Or The Highest Degree You Have Received? [id number] Information not available 05/17/2023 What Is Your [...] Anxious, Or Unable To Sleep At Night)? [id number] Information not available 05/17/2023 How Many Years [...] 50 mcg/0.25mL dose 07/08/2020 completed [facility] 09:17:42 COVID-19, mRNA, LNP-S, PF, 100 mcg/0.5mL dose or 50 mcg/0.25mL dose 06/15/2021 completed GITA Carl[facility] - [facility] 06/12/2022 16:24:21 Past Encounters Encounter ID Performer Location Encounter Start Date Encounter Closed Date Diagnosis/Indication Diagnosis SNOMED-CT Code Diagnosis ICD10 Code Diagnosis Note [id number] MIKHAIL JIMENEZ, AIRPLANE CHARTER CLERK TAY[address] [place] [address] 02/04/2024 16:08:53 02/04/2024 16:50:47 Acute vaginitis 31155217 N76.0 No discharge, Aptima obtained, declined GC/CH states had done recently, will await cx to treat. No f/u at this time. [id number] MIKHAIL WALTONTOYA, AIRPLANE CHARTER CLERK TAY[address] [place] [address] 03/02/2024 15:49:03 03/02/2024 16:14:39 Abnormal uterine bleeding [id number] 9100 N93.9 No bleeding today appears episode [...] for a transvagin al ultrasound with MDs. Health Concerns Section Related Observation LastModified by Organization Detai ls LastModified Time None Recorded Concern Status LastModified by Organization Details LastModified Time None Recorded Payers Encounter Date Sequence Insurance Name Policy Number Policy Soni Covered Member ID Soni Member ID Guarantor Name 03/02/[address] [place] [address] ([facility]) [id number] Paz Gallagher [id number] Paz Gallagher Notes Date Note Type Note Provider Name and Address Organization Details Recorded Time 03/02/2024 text/html [facility] Abnormal BleedingReported bypatient.Onset/Timing :present cycle Duration:10-15 days/month [...] for one year now/doing this study. MIKHAIL JIMENEZ, DONY [address], [place], [address], [place] [facility] 03/03/2024 08:25:50 OBGyn Episode No OBEpisode recorded.
== END 2024-04-01 13:59 | disposition home or self-care (01) ==
PROVIDERS: PCP Nurse Practitioner Family
DX: S63.641A Sprain of metacarpophalangeal joint of right thumb, initial encounter (principal)
CPT/HCPCS: 99203

== ENCOUNTER → 2024-04-01 13:21 | Outpatient (BNVA) | payer OTHER, SELFPAY | PROVIDERS: PCP Nurse Practitioner Family | DX: S63.641A Sprain of metacarpophalangeal joint of right thumb, initial encounter (principal) | CPT/HCPCS: 99202 ==

== ENCOUNTER 2024-04-22 13:44 | Outpatient (RCR) | payer OTHER, SELFPAY ==
--- NOTE | 2024-04-22 15:01 | MHC.OT.EP ---
[address] [phone] Occupational Therapy Plan of Care Patient Name: Paz Gallagher Date of Evaluation: 04/22/24 Diagnosis: Right 1st MCP hyperextension injury Pain Location: Right thumb and dorsal wrist Current: 0/10 Worst: 8-9/10 Pain Score: 0 Pain Scale Used: Numeric (0 - 10) Aggravating Factors: Weightbearing, full thumb extension Alleviating Factors: Brace, rest Assessment: Pt. 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 Patient presents with persistent pain at the base of the thumb and dorsal wrist. She continues to wear a thumb spica splint at work and reports pain exacerbated by pressure application, pushing, and hyperextension of the thumb. 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 QuickDASH score of 31.8% indicates moderate functional limitation. Pt would benefit from skilled OT for pain management and regain max function/return to work full duty. Frequency and Duration: The patient will be seen 2x/wk for 4 weeks Short Term Goals: Decrease R thumb/wrist pain <3/10 with activity Improve tolerance to pressure-based tasks without pain Introduce gentle strengthening of thumb stabilizers and wrist extensors to reduce compensatory stress Detention Goals: Full pain-free function in work-related tasks, including pushing and gripping activities Reduce QuickDASH score to <15% indicating minimal functional limitation IND with progression of HEP and return to body weight exercises Treatment Plan: Therapeutic Exercise Therapeutic Activity Home Exercise Program Patient Education Paraffin Fluidotherapy MHP Joint Mobilization Soft Tissue Mobilization Kinesiotaping Electronically Signed By: Jill Hart, OTR/L Please Sign and return to therapist. Thank you once again for your referral.
== END 2024-05-06 14:09 | disposition home or self-care (01) ==
LOC: HO.OT 13:44
PROVIDERS: PCP Nurse Practitioner Family; Visit Provider Physician Assistant Medical
DX: S63.650D Sprain of metacarpophalangeal joint of right index finger, subsequent encounter (principal)
CPT/HCPCS: 97110; 97165

== ENCOUNTER 2024-06-17 08:30 | Outpatient (RCR) | payer OTHER, SELFPAY ==
--- NOTE | 2024-06-03 12:03 | MHC.OT.EP ---
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 MRI (-) for acute fx but shows grade 1 UCL strain. She was referred to OT and initially seen 04/22/24, but no-shows the following three scheduled visits and was discharged due to visit non-compliance policy. She returns today to restart therapy services. On assessment today, she has good ROM, strength and stability in right thumb. She has some tightness and tenderness in base of both thumbs at CMC and will benefit from brief course of OT for CMC and MCP stabilization w/ education of joint protection. Frequency and Duration: The patient will be seen 1x/wk for 2 weeks Short Term Goals: Ind w/ HEP Ind w/ self STM Good demo of joint protection Senior Care Goals: same as above Treatment Plan: Therapeutic Exercise Therapeutic Activity Home Exercise Program Patient Education ADL Training Paraffin Fluidotherapy MHP Cold Packs Joint Mobilization Soft Tissue Mobilization Kinesiotaping Electronically Signed By: Fany Grady OTR/L CHT Please Sign and return to therapist. Thank you once again for your referral.
--- NOTE | 2024-06-17 09:42 | MHC.OT.DC ---
[address] [phone] F: [phone] Occupational Therapy Discharge Note Patient Name: Paz Gallagher Provider: Chani Gonzales PA-C Diagnosis: Right 1st MCP hyperextension injury Date of Evaluation: 06/03/24 Date of Discharge: 06/17/24 Treatments to Date: 3 Discharge Status: Achieved Goals Improved Function Independent with HEP Discharge Summary: Paz has returned to OT after work injury 01/09/24 w/ right thumb hyperextension injury. She has done well w/ brief course of therapy, now demo's good range, strength and functional use of hand. She has met all goals and is Ind w/ HEP, no further services needed at this time. Electronically Signed By: NEDA Richard/Erwin CHT Reviewed/agree with student documentation: Therapist: Please Sign and return to therapist, thank you for your referral.
== END 2024-06-17 09:43 | disposition home or self-care (01) ==
LOC: HO.OT 08:30
PROVIDERS: PCP Nurse Practitioner Family; Visit Provider Physician Assistant Medical
DX: S69.81XD Other specified injuries of right wrist, hand and finger(s), subsequent encounter (principal)
CPT/HCPCS: 97110; 97140; 97165

== ENCOUNTER → 2024-07-08 14:36 | Outpatient (BNVA) | payer OTHER, SELFPAY | PROVIDERS: PCP Nurse Practitioner Family; Visit Provider Physician Assistant Medical | DX: S66.911D Strain of unspecified muscle, fascia and tendon at wrist and hand level, right hand, subsequent encounter (principal); W50.0XXD Accidental hit or strike by another person, subsequent encounter; Z02.79 Encounter for issue of other medical certificate | CPT/HCPCS: 99213 ==